=== PATIENT | female | born 1950 | race Caucasian/White ===

== ENCOUNTER 2023-01-04 14:06 | Inpatient (IN) ==
[2023-01-04] MEDS ORDERED: HYDROCODONE/ACETAMOPHEN 5/325MG TAB PO STA (14:58)
--- NOTE | 2023-01-04 14:58 | Emergency Department Note ---
History of Present Illness General Chief complaint: Fall Stated complaint: FALL, EYE PAIN Time Seen by Provider: 01/04/23 14:30 History of Present Illness Maximum Pain Intensity: 10 This is a 72-year-old female presents to the emergency department via private vehicle with complaints of "fall, right-sided head bruising, right hip pain". Patient has this past Thursday she fell. She has a small dog and notes that it was pulling her causing her to fall. She then landed on the right hip area. She notes pain to the right hip since that time. It is worse with weightbearing and movement. She also notes that she struck the right side of her head. She does take a baby aspirin daily. She notes a history of endovascular aneurysm surgery October 29. She also notes history of open heart surgery with heart valve replacement. She denies any headaches. No nausea or vomiting. She notes right hip pain however since the injury. Current pain 05/19. Home Medications Medication Instructions Recorded Confirmed Type aspirin 81 mg chewable tablet 81 mg PO QAM 11/11/21 01/04/23 History bupropion HCl 150 mg 24 hr tablet, 150 mg PO QAM 11/11/21 01/04/23 History extended release (Wellbutrin XL) coenzyme Q10 100 mg capsule 100 mg PO QAM 11/11/21 01/04/23 History (CoQ-10) fluoxetine 10 mg capsule 10 mg PO QAM 11/11/21 01/04/23 History cholecalciferol (vitamin D3) 25 25 mcg PO QAM 04/09/22 01/04/23 History mcg (1,000 unit) capsule (Vitamin D3) folic acid 400 mcg tablet 0.4 mg PO QAM 04/09/22 01/04/23 History lactobacillus combination no.4 3 3,000 mmu cells PO QAM 04/09/22 01/04/23 History billion cell capsule (Probiotic) psyllium 1 packet PO [id number] 04/09/22 01/04/23 History calcium carbonate 500 mg calcium 500 mg PO DAILY 01/04/23 01/04/23 History (1,250 mg) tablet fluoxetine 20 mg capsule 20 mg PO DAILY 01/04/23 01/04/23 History magnesium malate, chelate 125 mg PO QAM 01/04/23 01/04/23 History vitamin B12 1 mg-folic acid 0.8 mg 1 tab PO QAM 01/04/23 01/04/23 History tablet Allergies Allergy/AdvReac Type Severity Reaction Status Date / Time No Known Allergies Allergy Verified 01/04/23 17:42 Past Med/Surg History Medical History (Updated 01/05/23 @ 10:30 by Favian Mosley DO) Anxiety Arthritis Brain injury 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 Brown - NO stent placed - Follows Dr. Shaw Hx of cataract extraction LT. Hx of laser iridotomy right eye Hx of tonsillectomy S/P TAVR (transcatheter aortic valve replacement) 12/19/2021 - [facility] - Follows Dr. Shaw Status post coil embolization of cerebral aneurysm [place] - October 2021 - Right MCA bifurcation - follows Dr. 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 Feels Safe at Home: Yes Assistive Devices: Cane, Glasses, Hearing Aid - Bilateral and Other Review of Systems A total of 10 systems reviewed and were otherwise negative Physical Exam Vital Signs Vital Signs - 24 hr 01/04/23 14:07 01/04/23 18:04 Temperature 36.5 C Temperature Source Temporal Artery Scan Pulse Rate 72 Pulse Rate [Right Radial] 75 Respiratory Rate 16 18 Respiratory Effort / Characteristics Non-Labored Respiratory Depth Normal Normal Blood Pressure 144/63 H Blood Pressure [Left Arm] 160/88 H Blood Pressure Mean 90 Blood Pressure Mean [Left Arm] 112 Blood Pressure Position [Left Arm] Lying Pulse Oximetry 99 97 Oxygen Delivery Method Room Air Room Air Sepsis Recent Fever Within 48 Hours No Sepsis New/Unexplained Change in Mental Status No Sepsis Action Taken by Nursing No Action Required VITAL SIGNS - Vital signs and nursing notes were reviewed. Stable and afebrile. GENERAL -72-year-old female appearing her stated age who is in no acute dist ress. Communicates well with provider and answers questions appropriately. SKIN -right sided scalp and forehead contusion noted. There is dependent bruising to the right lateral periorbital region. No meningeal or petechial rash. HEAD - NC/AT. EYES - Sclera anicteric. EARS - No deformities of external structures noted on gross examination bilaterally. No hemotympanum. NOSE - Midline and without cyanosis. No epistaxis or purulent drainage noted. Septum midline without deviation or septal hematoma noted. MOUTH/OROPHARYNX - Without perioral cyanosis. NECK - Neck with FROM. No C-spine tenderness. LUNGS -clear to auscultation CARDIAC - RRR EXTREMITIES - No clubbing or peripheral cyanosis. Right greater trochanter point tenderness to palpation. Pain with external hip movement noted. R dorsalis pedis pulse within normal limits. NEUROLOGIC - Cranial nerves II through XII grossly intact. She is neurovascularly intact to the right lower extremity without deficit. PSYCH - A&O, and cooperates fully with examiner. Pt is very pleasant and interacts well with examiner. Course Administered Medications Acetaminophen (Acetaminophen 500 Mg Tab) 1,000 mg PO TID [facility] Stop: 02/03/23 21:45 Last Admin: 01/05/23 09:13 Dose: 1,000 mg Documented By: Admin: 01/04/23 22:18 Dose: 1,000 mg Documented By: VERONICA Bupropion HCl (Bupropion Xl 150 Mg Tabcr) 150 mg PO QAM [facility] Stop: 02/04/23 08:59 Last Admin: 01/05/23 09:13 Dose: 150 mg Documented By: FORREST Calcium Carbonate (Calcium Carbonate 500 Mg Chewable Tab) 500 mg PO DAILY [facility] Stop: 02/04/23 08:59 Last Admin: 01/05/23 09:38 Dose: Not Given Documented By: FORREST Fluoxetine HCl (Fluoxetine Hcl 10 Mg Cap) 10 mg PO QAM [facility] Stop: 02/04/23 08:59 Last Admin: 01/05/23 09:14 Dose: 10 mg Documented By: FORREST Fluoxetine HCl (Fluoxetine Hcl 20 Mg Cap) 20 mg PO DAILY [facility] Stop: 02/04/23 08:59 Last Admin: 01/05/23 09:14 Dose: 20 mg Documented By: FORREST Lactobacillus Acidophilus (Advanced Probiotic 1250 Mg Capsule) 2 cap PO DAILY [facility] Stop: 02/04/23 08:59 Last Admin: 01/05/23 09:38 Dose: Not Given Documented By: FORREST Oxycodone HCl (Oxycodone Hcl Ir 5 Mg Tab (Immediate Release)) 5 mg PO Q6H PRN PRN Reason: Pain Stop: 01/18/23 22:37 Last Admin: 01/05/23 06:20 Dose: 5 mg Documented By: Admin: 01/04/23 23:38 Dose: 5 mg Documented By: HUMBERTO Psyllium Hydrophilic Mucilloid (Psyllium Or Guar Gum Fiber Powder Packet) 1 pkt PO MoWeFr [facility] Stop: 02/04/23 08:59 Last Admin: 01/05/23 09:39 Dose: Not Given Documented By: FORREST Senna/Docusate Sodium (Docusate Sodium/Senna 50/8.6mg Tab) 2 tab PO HS [facility] Stop: 02/03/23 21:45 Last Admin: 01/04/23 22:18 Dose: 2 tab Documented By: VERONICA Discontinued Medications Hydrocodone Bitart/Acetaminophen (Hydrocodone/Acetamophen 5/325mg Tab) 1 tab PO NOW STA Stop: 01/04/23 14:59 Last Admin: 01/04/23 15:03 Dose: 1 tab Documented By: JACK Enoxaparin Sodium (Enoxaparin Inj 40 Mg/0.4 Ml Syr) 40 mg SQ ONE ONE Stop: 01/04/23 21:47 Last Admin: 01/04/23 22:23 Dose: 40 mg Documented By: VERONICA Medical Decision Making Laboratory Data 01/04/23 18:00 01/04/23 18:00 Lab Results 01/04/23 01/04/23 01/04/23 Range/Units 18:00 18:00 18:00 WBC 6.28 (4.8-10.8) K/ul RBC 3.72 L (4.20-5.40) M/uL Hgb 11.5 L (12.0-16.0) g/dl Hct 34.9 L (37.0-47.0) % MCV 93.8 (80.0-100.0) fL MCH 30.9 (25.0-34.0) pg MCHC 33.0 (32.0-36.0) g/dL RDW Std Deviation 48.7 H (36.4-46.3) fL RDW Coeff of Loren 14.2 (11.5-14.5) % Plt Count 214 (130-400) K/uL MPV 10.6 (9.4-12.4) fL Immature Gran % (Auto) 0.2 % Neut % (Auto) 62.4 % Lymph % (Auto) 19.7 % [place] % (Auto) 8.8 % Eos % (Auto) 8.3 % Baso % (Auto) 0.6 % Neut # (Auto) 3.92 (1.40-6.50) K/uL Lymph # (Auto) 1.24 (1.2-3.4) K/uL [place] # (Auto) 0.55 (0.11-0.59) K/uL Eos # (Auto) 0.52 H (0-0.50) K/uL Baso # (Auto) 0.04 (0-0.2) K/uL Immature Gran # (Auto) 0.01 (0.01-0.20) K/uL PT 10.8 (9.0-12.0) Seconds INR 1.0 (0.9-1.1) APTT 30.0 (21.0-31.0) Seconds PTT Ratio 1.1 Sodium 138 (136-145) mmol/L Potassium 4.1 (3.5-5.1) mmol/L Chloride 102 (98-107) mmol/L Carbon Dioxide 27 (21-32) mmol/L Anion Gap 9 (3-11) BUN 15 (6-23) mg/dl Creatinine 0.70 (0.6-1.2) mg/dl Est Cr Clr Drug Dosing 65.8 ml/min Est GFR ( Amer) 99.6 ml/min Est GFR (Non-Af Amer) 86.0 ml/min BUN/Creatinine Ratio 21.4 H (10-20) Glucose 85 (70-99(Fasting)) mg/dl Calcium 9.5 (8.6-10.3) mg/dl Total Bilirubin 0.8 (0.2-1.0) mg/dl AST 32 (13-39) U/L ALT 17 (7-52) U/L Alkaline Phosphatase 62 (34-104) U/L Total Protein 7.9 (6.0-8.3) gm/dl Albumin 4.4 (3.4-5.0) gm/dl Globulin 3.5 (2.5-4.0) gm/dl Albumin/Globulin Ratio 1.3 (0.9-2) SARS-CoV-2, RNA, NAAT (NEGATIVE) Blood Type Antibody Screen 01/04/23 01/04/23 Range/Units 18:05 18:24 WBC (4.8-10.8) K/ul RBC (4.20-5.40) M/uL Hgb (12.0-16.0) g/dl Hct (37.0-47.0) % MCV (80.0-100.0) fL MCH (25.0-34.0) pg MCHC (32.0-36.0) g/dL RDW Std Deviation (36.4-46.3) fL RDW Coeff of Loren (11.5-14.5) % Plt Count (130-400) K/uL MPV (9.4-12.4) fL Immature Gran % (Auto) % Neut % (Auto) % Lymph % (Auto) % [place] % (Auto) % Eos % (Auto) % Baso % (Auto) % Neut # (Auto) (1.40-6.50) K/uL Lymph # (Auto) (1.2-3.4) K/uL [place] # (Auto) (0.11-0.59) K/uL Eos # (Auto) (0-0.50) K/uL Baso # (Auto) (0-0.2) K/uL Immature Gran # (Auto) (0.01-0.20) K/uL PT (9.0-12.0) Seconds INR (0.9-1.1) APTT (21.0-31.0) Seconds PTT Ratio Sodium (136-145) mmol/L Potassium (3.5-5.1) mmol/L Chloride (98-107) mmol/L Carbon Dioxide (21-32) mmol/L Anion Gap (3-11) BUN (6-23) mg/dl Creatinine (0.6-1.2) mg/dl Est Cr Clr Drug Dosing ml/min Est GFR ( Amer) ml/min Est GFR (Non-Af Amer) ml/min BUN/Creatinine Ratio (10-20) Glucose (70-99(Fasting)) mg/dl Calcium (8.6-10.3) mg/dl Total Bilirubin (0.2-1.0) mg/dl AST (13-39) U/L ALT (7-52) U/L Alkaline Phosphatase (34-104) U/L Total Protein (6.0-8.3) gm/dl Albumin (3.4-5.0) gm/dl Globulin (2.5-4.0) gm/dl Albumin/Globulin Ratio (0.9-2) SARS-CoV-2, RNA, NAAT NEGATIVE (NEGATIVE) Blood Type A Positive Antibody Screen NEGATIVE Imaging Data Radiologist's Impression: Head CT 01/04/23 14:27 CT head/brain wo con CLINICAL HISTORY: Right eye Bruising, on blood thinners Technique: Contiguous axial CT images of the head were acquired from the base of the skull to the vertex without intravenous contrast administration. Images were viewed in brain, subdural and bone windows. Automated dose lowering techniques and/or adjustment according to patient size were utilized for this exam. Comparison: Comparison is made to CT head 04/19/2022 Findings: Areas of decreased attenuation are present in the periventricular and subcortical white matter bilaterally consistent with small vessel ischemic disease. Generalized cerebral atrophy with commensurate enlargement of the ventricles, sulci, and cisterns is also present. There is no acute intracranial hemorrhage or evidence of acute territorial infarction. No shift of the midline structures, mass effect, or extra-axial abnormalities are shown. Atherosclerotic calcifications are present in the intracranial segments of the internal carotid arteries. 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 Imaged portions of the paranasal sinuses and mastoid air cells are clear. The orbits appear normal. There are no acute fractures of the calvaria. Scalp swelling is seen in the right temporal soft tissues. Impression: No acute intracranial hemorrhage or skull fractures. Scalp swelling is seen in the right temporal soft tissues. ACT 112: Negative or not required by law. Electronically signed by: Ottoniel Carreon M.D. 01/04/2023 4:14 PM Femur X-Ray 01/04/23 14:42 XR femur RT 2V routine CLINICAL HISTORY: Fall, R hip pain TECHNIQUE: 2 radiographic views of the right femur were obtained. Comparison: Comparison is made to pelvis radiograph 12/15/2022 FINDINGS: There appears to be linear lucency at the base of the femoral head suggestive of a subcapital fracture. Degenerative changes are seen in the hip and knee joints. Soft tissue swelling is seen. IMPRESSION: Possible subcapital fracture of the right femur. If clinical concern remains, dedicated hip radiograph can be performed. ACT 112: Negative or not required by law. Electronically signed by: Ottoniel Carreon M.D. 01/04/2023 4:13 PM Pelvis X-Ray 01/04/23 14:42 XR pelvis 1-2V routine CLINICAL HISTORY: Fall, R hip pain TECHNIQUE: A single frontal view of the pelvis was obtained. Comparison: None available at the time of this dictation. FINDINGS: No pelvic fracture is seen. There is foreshortening of the right femoral neck which is likely positional. Degenerative changes are seen in the hip joints and lumbar spine. No soft tissue abnormality is seen. IMPRESSION: Degenerative changes are seen. There is foreshortening of the right femoral neck, if there is clinical concern for right rib fracture, dedicated radiographs can be performed. ACT 112: Negative or not required by law. Electronically signed by: Ottoniel Carreon M.D. 01/04/2023 4:05 PM Hip X-Ray 01/04/23 17:27 XR hip RT min 2V CLINICAL HISTORY: frog leg, ap pevis, frog leg lateral TECHNIQUE: 2 views of the right hip were obtained. Comparison: Comparison is made to pelvis radiograph 01/04/2023 FINDINGS: Linear lucency at the base of the femoral head is compatible with subcapital femoral neck fracture which appears mildly impacted. Degenerative changes are seen in the hip joint. Soft tissue swelling is seen. IMPRESSION: Findings are compatible with slightly impacted subcapital femoral neck fracture. ACT 112: Negative or not required by law. Electronically signed by: Ottoniel Carreon M.D. 01/04/2023 6:13 PM [facility] Narrative Patient was seen and evaluated as above in room D01. Review was performed of [facility] nursing notes and vital signs. After obtaining a thorough history and physical examination the above work up was performed. Patient presents to us today for evaluation of injury status post fall. She struck the right side of her head and injured the right hip this past Thursday. She has been ambulatory but notes discomfort to the right hip. No headaches. No nausea or vomiting. She takes baby aspirin daily. Options of care were discussed with the patient. She was medicated with hydr ocodone/acetaminophen tablet for pain. CT of the head was read as negative for acute intracranial bleed. X-ray of the pelvis and femur were obtained noting areas of discomfort. There is comment of foreshortening of the right femoral neck noting concern for right hip fracture. Possible subcapital fracture of the right femur is noted. Dedicated hip radiographs can be performed as per radiologist recommendation. I discussed this with the on-call orthopedist for the group of which the patient is previously followed, Dr. Christian. Recommendation was to proceed with dedicated hip views. The radiologist tech then did call me and clarified the views as they do note much of the views have already been obtained through femur and pelvis. It was noted that they did not obtain a frog-leg lateral. I then placed dedicated orders for AP pelvis, AP hip and frog-leg lateral for the right hip. I also notified the radiologist of the new views. It was then read as findings compatible with slightly impacted subcapital femoral neck fracture which is consistent with her exam. The [place] tablet provided adequate pain relief. Case discussed with the hospitalist service. Please refer to further documentation regarding her stay. Patient did have adequate pain relief with the hydrocodone/acetaminophen tablet. Labs reveal no leukocytosis. Minor anemia noted with hemoglobin of 11.5. GCS: 15 In the evaluation and treatment of this patient, the following differential diagnoses were considered: Hip Fracture, Hip Dislocation, Greater Trochanteric Bursitis, Musculoskeletal Pain, Lumbar Radiculopathy. Impression & Plan Closed fracture of right hip, Fall, Contusion of head Discharge Plan Visit Data Chief Complaint: Fall Stated Complaint: FALL, EYE PAIN ED Provider: Arash Rodriges ED Midlevel Provider: Hilario Salinas Discharge Problem: Closed fracture of right hip, Fall, Contusion of head Patient Disposition: Admitted As Inpatient Condition: Good Discharge Instructions Interventions: ED Discharge Assessment Last Done: 01/04/23 23:07 Contusion of head Qualifiers: Laterality: right
--- NOTE | 2023-01-04 16:07 | XRay Report ---
XR pelvis 1-2V routine CLINICAL HISTORY: Fall, R hip pain TECHNIQUE: A single frontal view of the pelvis was obtained. Comparison: None available at the time of this dictation. FINDINGS: No pelvic fracture is seen. There is foreshortening of the right femoral neck which is likely positio nal. Degenerative changes are seen in the hip joints and lumbar spine. No soft tissue abnormality is seen. IMPRESSION: Degenerative changes are seen. There is foreshortening of the right femoral neck, if there is clinica l concern for right rib fracture, dedicated radiographs can be performed. ACT 112: Negative or not required by law. Electronically signed by: Ottoniel Carreon M.D. 01/04/2023 4:05 PM
--- NOTE | 2023-01-04 16:14 | XRay Report ---
XR femur RT 2V routine CLINICAL HISTORY: Fall, R hip pain TECHNIQUE: 2 radiographic views of the right femur were obtained. Comparison: Comparison is made to pelvis radiograph 12/15/2022 FINDINGS: There appears to be linear lucency at the base of the femoral head suggestive of a subcapital fractur e. Degenerative changes are seen in the hip and knee joints. Soft tissue swelling is seen. IMPRESSION: Possible subcapital fracture of the right femur. If clinical concern remains, dedicated hip radiograp h can be performed. ACT 112: Negative or not required by law. Electronically signed by: Ottoniel Carreon M.D. 01/04/2023 4:13 PM
--- NOTE | 2023-01-04 16:15 | CT Scan Report ---
CT head/brain wo con CLINICAL HISTORY: Right eye Bruising, on blood thinners Technique: Contiguous axial CT images of the head were acquired from the base of the skull to the eliza sayda without intravenous contrast administration. Images were viewed in brain, subdural and [facility]. Automated dose lowering techniques and/or adjustment according to patient size were utilized for this exam. Comparison: Comparison is made to CT head 04/19/2022 Findings: Areas of decreased attenuation are present in the periventricular and subcortical white matter bilate rally consistent with small vessel ischemic disease. Generalized cerebral atrophy with commensurate e nlargement of the ventricles, sulci, and cisterns is also present. There is no acute intracranial hem orrhage or evidence of acute territorial infarction. No shift of the midline structures, mass effect, or extra-axial abnormalities are shown. Atherosclerotic calcifications are present in the intracran ial segments of the internal carotid arteries. Lacunar infarct in the left basal ganglia is unchanged . Imaged portions of the paranasal sinuses and mastoid air cells are clear. The orbits appear normal. There are no acute fractures of the calvaria. Scalp swelling is seen in the right temporal soft tiss ues. Impression: No acute intracranial hemorrhage or skull fractures. Scalp swelling is seen in the right temporal sof t tissues. ACT 112: Negative or not required by law. Electronically signed by: Ottoniel Carreon M.D. 01/04/2023 4:14 PM
--- NOTE | 2023-01-04 18:15 | XRay Report ---
XR hip RT min 2V CLINICAL HISTORY: frog leg, ap pevis, frog leg lateral TECHNIQUE: 2 views of the right hip were obtained. Comparison: Comparison is made to pelvis radiograph 01/04/2023 FINDINGS: Linear lucency at the base of the femoral head is compatible with subcapital femoral neck fracture wh ich appears mildly impacted. Degenerative changes are seen in the hip joint. Soft tissue swelling is seen. IMPRESSION: Findings are compatible with slightly impacted subcapital femoral neck fracture. ACT 112: Negative or not required by law. Electronically signed by: Ottoniel Carreon M.D. 01/04/2023 6:13 PM
--- NOTE | 2023-01-04 18:29 | History & Physical Report ---
Date of Service January 04, 2023 Assessment & Plan (1) Closed fracture of right hip: Plan: Pain management with acetaminophen ELLIOT + morphine 1-2mg PRN CXR - no acute abnormalities, EKG NSR with no acute ischemic changes Patient has a murmurs from prior TAVR Patient is medically optimized for surgery at this time. NPO after midnight Consult orthopedics (2) Contusion of head: Plan: CT head negative for intracranial abnormality Monitor (3) Fall: Plan: No further workup required - due to her dog suddenly releasing tension on the leash (4) S/P TAVR (transcatheter aortic valve replacement): Plan: Mild coronary artery disease noted on pre-op catheterization. Murmurs on exam. No history of heart failure. Restart aspirin post operatively (5) Depression: Plan: Continue fluoxetine Plan VTE Prophyalxis - one dose of Lovenox now then defer to orthopedics post operatively Diet - regular, NPO @ midnight Disposition - admit to med/surg Admission and Anticipated Discharge Date Admission Date: January 04, 2023 History of Present Illness Chief Complaint: Right hip pain Primary Care Provider: Jenni Peters MD Anastasiya Chapin is a 72 year old female who presents to the ER with right hip pain after a fall on Thursday. She was holding her dog that was jerking away from her and suddenly let up on the tension that she fell onto her right hip and then hit her head. She did not seek medical attention and has not moved around the house much since. Severity hip pain 0/10 without movement, pain only while walking on it. She tried to do more walking yesterday which increased the pain then and today therefore she decided to come to the ER. No loss of consciousness with the fall. She is not on anticoagulation but takes an aspiring for coronary artery disease (picked up incidentally on pre-op catheterization for TAVR). Other history includes an incidental brain aneurysm which was operated on 7-8 years ago. At 10 months old she had a traumatic injury from falling from a high chair causing right sided weakness which she still has some residual effects especially in her right ankle and toes from this. Most recently she had a TAVR procedure for severe aortic stenosis in December last year - no problems since then and no prior diagnosis of heart failure. She has never had a heart attack or stroke. No chest pain or shortness of breath on exertion although this is limited by her knee arthritis. Allergies Allergy/AdvReac Type Severity Reaction Status Date / Time No Known Allergies Allergy Verified 01/04/23 17:42 Home Medications Medication Instructions Recorded Confirmed Type aspirin 81 mg chewable tablet 81 mg PO QAM 11/11/21 01/04/23 History bupropion HCl 150 mg 24 hr tablet, 150 mg PO QAM 11/11/21 01/04/23 History extended release (Wellbutrin XL) coenzyme Q10 100 mg capsule 100 mg PO QAM 11/11/21 01/04/23 History (CoQ-10) fluoxetine 10 mg capsule 10 mg PO QAM 11/11/21 01/04/23 History cholecalciferol (vitamin D3) 25 25 mcg PO QAM 04/09/22 01/04/23 History mcg (1,000 unit) capsule (Vitamin D3) folic acid 400 mcg tablet 0.4 mg PO QAM 04/09/22 01/04/23 History lactobacillus combination no.4 3 3,000 mmu cells PO QAM 04/09/22 01/04/23 History billion cell capsule (Probiotic) psyllium 1 packet PO 3XWK 04/09/22 01/04/23 History calcium carbonate 500 mg calcium 500 mg PO DAILY 01/04/23 01/04/23 History (1,250 mg) tablet fluoxetine 20 mg capsule 20 mg PO DAILY 01/04/23 01/04/23 History magnesium malate, chelate 125 mg PO QAM 01/04/23 01/04/23 History vitamin B12 1 mg-folic acid 0.8 mg 1 tab PO QAM 01/04/23 01/04/23 History tablet Past Med/Surg History Medical History Anxiety Arthritis Brain injury Childhood trauma (fall from highchair) 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 Brown - NO stent placed - Follows Dr. Shaw Hx of cataract extraction LT. Hx of laser iridotomy right eye Hx of tonsillectomy S/P TAVR (transcatheter aortic valve replacement) 12/19/2021 - [place] - Follows Dr. Shaw Status post coil embolization of cerebral aneurysm [facility] - October 2021 - Right MCA bifurcation - follows Dr. 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 Feels Safe at Home: Yes Assistive Devices: Cane, Glasses, Hearing Aid - Bilateral and Other Review of Systems Review of Systems: All systems reviewed & are unremarkable except as noted in HPI & below Physical Exam Constitutional: WD/WN, vitals as above Eyes: PERRL, conjunctivae normal, anicteric sclerae ENMT: external ear and nose normal, oropharynx normal Neck: trachea midline, no thyromegaly Respiratory: normal respiratory effort, lungs clear to auscultation Cardiovascular: Rate/Rhythm: regular rate and regular rhythm Heart Sounds: + murmur (systolic, loudest in LUSB 5/6) Gastrointestinal (Abdomen): normal bowel sounds, soft, nontender, no hepatosplenomegaly Musculoskeletal: reasonable range of movement of right hip given fracture, pain on hip abduction Chronic reduce dorsiflexion/plantarflexion in right ankle follow traumatic injury in her childhood - no acute change, sensation intact Skin: no rashes, warm and dry Neurologic: moves all extremities and awake; not confused Psychiatric: A+Ox3, euthymic affect Results & Data Results & Data Vital Signs (Past 12 Hours) Vital Signs Temp Pulse Pulse Resp BP BP Pulse Ox 01/04/23 18:04 75 18 160/88 H 97 01/04/23 14:07 36.5 C 72 16 144/63 H 99 O2 Del Method 01/04/23 18:04 Room Air 01/04/23 14:07 Room Air Laboratory Results Abnormal lab results 01/04/23 01/04/23 01/04/23 Range/Units 18:00 18:00 19:50 RBC 3.72 L (4.20-5.40) M/uL Hgb 11.5 L (12.0-16.0) g/dl Hct 34.9 L (37.0-47.0) % RDW Std Deviation 48.7 H (36.4-46.3) fL Eos # (Auto) 0.52 H (0-0.50) K/uL BUN/Creatinine Ratio 21.4 H (10-20) Urine Appearance Cloudy A (Clear) Urine pH 8.5 H (4.5-7.5) Urine Ketones 1+ H (Negative) Urine Blood Trace H (Negative) Urine RBC (Auto) 5-10 H (0-4) /hpf U Epithel Cells (Auto) 10-20 H (0-5) /lpf Diagnostic Findings CT head/brain wo con CLINICAL HISTORY: Right eye Bruising, on blood thinners Technique: Contiguous axial CT images of the head were acquired from the base of the skull to the vertex without intravenous contrast administration. Images were viewed in brain, subdural and bone windows. Automated dose lowering techniques and/or adjustment according to patient size were utilized for this exam. Comparison: Comparison is made to CT head 04/19/2022 Findings: Areas of decreased attenuation are present in the periventricular and subcortical white matter bilaterally consistent with small vessel ischemic disease. Generalized cerebral atrophy with commensurate enlargement of the ventricles, sulci, and cisterns is also present. There is no acute intracranial hemorrhage or evidence of acute territorial infarction. No shift of the midline structures, mass effect, or extra-axial abnormalities are shown. Atherosclerotic calcifications are present in the intracranial segments of the internal carotid arteries. 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 Imaged portions of the paranasal sinuses and mastoid air cells are clear. The orbits appear normal. There are no acute fractures of the calvaria. Scalp swelling is seen in the right temporal soft tissues. Impression: No acute intracranial hemorrhage or skull fractures. Scalp swelling is seen in the right temporal soft tissues. XR femur RT 2V routine CLINICAL HISTORY: Fall, R hip pain TECHNIQUE: 2 radiographic views of the right femur were obtained. Comparison: Comparison is made to pelvis radiograph 12/15/2022 FINDINGS: There appears to be linear lucency at the base of the femoral head suggestive of a subcapital fracture. Degenerative changes are seen in the hip and knee joints. Soft tissue swelling is seen. IMPRESSION: Possible subcapital fracture of the right femur. If clinical concern remains, dedicated hip radiograph can be performed. XR pelvis 1-2V routine CLINICAL HISTORY: Fall, R hip pain TECHNIQUE: A single frontal view of the pelvis was obtained. Comparison: None available at the time of this dictation. FINDINGS: No pelvic fracture is seen. There is foreshortening of the right femoral neck which is likely positional. Degenerative changes are seen in the hip joints and lumbar spine. No soft tissue abnormality is seen. IMPRESSION: Degenerative changes are seen. There is foreshortening of the right femoral neck, if there is clinical concern for right rib fracture, dedicated radiographs can be performed. XR hip RT min 2V CLINICAL HISTORY: frog leg, ap pevis, frog leg lateral TECHNIQUE: 2 views of the right hip were obtained. Comparison: Comparison is made to pelvis radiograph 01/04/2023 FINDINGS: Linear lucency at the base of the femoral head is compatible with subcapital femoral neck fracture which appears mildly impacted. Degenerative changes are seen in the hip joint. Soft tissue swelling is seen. IMPRESSION: Findings are compatible with slightly impacted subcapital femoral neck fracture. Medications Administered ER Medications Given: [place] 5/325 1 tab PO ECG Rate (beats per minute): 73 Rhythm: normal sinus Findings: no acute ischemic change Comparison ECG Date: no prior available Code Status & VTE Plan Code Status Full PG Care Time/CCT Total # of Minutes Spent Total Time Spent with Patient: Total time spent is greater than 50% in coordination of care (as documented) at patient's floor/unit and/or counseling patient: Coding Level of Care Code 67954 INT INP/OBS CARE 2/55MIN Diagnoses Closed fracture of right hip S72.001A Contusion of head S00.93XA Laterality: right Fall W19.XXXA S/P TAVR (transcatheter aortic valve replacement) Z95.2 Depression F32.A (2) Contusion of head Laterality: right
[2023-01-04 18:30] LABS: Basophils # (auto) 0.04 K/uL (0-0.2); Basophils % (auto) 0.6 %; Eosinophils # (auto) 0.52 K/uL (0-0.50); Eosinophils % (auto) 8.3 %; Hematocrit (blood only) 34.9 % (37.0-47.0); Hemoglobin 11.5 g/dl (12.0-16.0); Immature Granulocytes # (auto) 0.01 K/uL (0.01-0.20); Immature Granulocytes % (auto) 0.2 %; Lymphocytes # (auto) 1.24 K/uL (1.2-3.4); Lymphocytes % (auto) 19.7 %; Mean Corpuscular Hemoglobin 30.9 pg (25.0-34.0); Mean Corpuscular Volume 93.8 fL (80.0-100.0); Mean Platelet Volume 10.6 fL (9.4-12.4); Monocytes # (auto) 0.55 K/uL (0.11-0.59); Monocytes % (auto) 8.8 %; Neutrophils # (auto) 3.92 K/uL (1.40-6.50); Neutrophils % (auto) 62.4 %; Platelet Count 214 K/uL (130-400); RDW Coefficient of Variation 14.2 % (11.5-14.5); RDW Standard Deviation 48.7 fL (36.4-46.3); Red Blood Count 3.72 M/uL (4.20-5.40); White Blood Count 6.28 K/ul (4.8-10.8)
[2023-01-04 18:41] LABS: Albumin Globulin Ratio 1.3 (0.9-2); Albumin Level 4.4 gm/dl (3.4-5.0); BUN Creatinine Ratio 21.4 (10-20); Bilirubin,Total 0.8 mg/dl (0.2-1.0); Calcium 9.5 mg/dl (8.6-10.3); Creatinine Clr Calc Pharmacy 65.8 ml/min; Est GFR (African American) 99.6 ml/min; Globulin 3.5 gm/dl (2.5-4.0); Potassium 4.1 mmol/L (3.5-5.1); Total Protein 7.9 gm/dl (6.0-8.3)
[2023-01-04 19:02] LABS: Partial Thromboplastin Ratio 1.1; Prothrombin Time 10.8 Seconds (9.0-12.0)
--- NOTE | 2023-01-04 19:50 | XRay Report ---
XR chest 1V portable CLINICAL HISTORY: pre-op TECHNIQUE: Single frontal radiograph of the chest was obtained. Comparison: None available at the time of this dictation. FINDINGS: No lines and tubes are seen. Cardiomegaly is noted. Prosthetic valve is noted. The lungs are clear. N o evidence of pleural effusion or pneumothorax. IMPRESSION: No acute chest disease. ACT 112: Negative or not required by law. Electronically signed by: Ottoniel Carreon M.D. 01/04/2023 7:49 PM
[2023-01-04 20:06] LABS: Appearance Urine Cloudy (Clear); Bacteria Urine Automated Negative (Negative); Bilirubin Urine Negative (Negative); Blood Urine Trace (Negative); Cast Urine Automated 0 /lpf (0-5); Color Urine Yellow; Glucose Urine UA Negative (Negative); Ketones Urine 1+ (Negative); Leukocyte Esterase Urine Negative (Negative); Nitrite Urine Negative (Negative); Protein Urine Negative (Negative); Specific Gravity Urine 1.012 (1.000-1.030); Urobilinogen Urine Negative (Negative); pH Urine 8.5 (4.5-7.5)
[2023-01-04] MEDS ORDERED: bisacodyL 10 MG SUPP PR PRN (21:46)
[2023-01-04] MEDS ORDERED: ENOXAPARIN INJ 40 MG/0.4 ML SYR SQ ONE (21:46)
[2023-01-04] MEDS ORDERED: MAGNESIUM HYDROXIDE SUSP 30 ML UDC PO PRN (21:46)
[2023-01-04] MEDS ORDERED: MoRPHine SULFATE 2 MG/ML CARP IV PRN (21:46)
[2023-01-04] MEDS ORDERED: MoRPHine SULFATE 4 MG/ML 1 ML CARP\\VIAL IV PRN (21:46)
[2023-01-04] MEDS ORDERED: NALOXONE HCL 0.4 MG/1 ML VIAL/CARP IV PRN (21:46)
--- NOTE | 2023-01-04 22:05 | Orthopedic Consultation ---
Date of Service January 04, 2023 Assessment & Plan (1) Fracture of femoral neck, right, closed: 72-year-old community ambulator without assist device sustained fall 4 days ago resulting in valgusimpacted, subcapital femoral neck fracture. Fracture is indicated for percutaneous screw fixation. I showed the patient and her the x-rays. I explained the diagnosis and treatment option surgical stabilization is the standard of care. I think the fracture pattern is amenable to fixation and avoidance of a partial or total hip arthroplasty. I discussed the risks of surgery includes, but not limited to, infection, nerve or vessel injury, arthrofibrosis of the hip, nonunion, malunion need for repeat or revision surgery, progressive degenerative changes with or without surgical intervention, implant complications and failure, need for eventual total hip replacement, pain syndromes, blood clots, and complications related to anesthesia. Her and her asked appropriate questions, demonstrated a good understanding of her diagnosis and treatment options, and at this time wanted proceed with surgery. She is being admitted to the medical team for preoperative optimization and clearance. We expect she will be able to go to surgery as early as tomorrow. N.p.o. at midnight. She should be bedrest. She will be on-call tomorrow to the OR midmorning for right femoral neck open or closed reduction and internal fixation. History of Present Illness Reason for Consultation: Right femoral neck fracture Requesting Physician: . 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 Reports she fell directly onto the lateral side of her right hip and also hit her right face. She treated at home herself but was having difficulty weightbearing. She said she is comfortable at rest but has significant with attempts at walking. She was using a TV tray as a walker at home. She came in today to get checked out due to lack of improvement. Denies any previous significant hip pain. She does have a history of bilateral knee arthritis and is thinking about total knee replacement. Pain is localized to the right hip. She said she is much more comfortable after taking oral pain medicines in the ER. Allergies Allergy/AdvReac Type Severity Reaction Status Date / Time No Known Allergies Allergy Verified 01/04/23 17:42 Home Medications Medication Instructions Recorded Confirmed Type aspirin 81 mg chewable tablet 81 mg PO QAM 11/11/21 01/04/23 History bupropion HCl 150 mg 24 hr tablet, 150 mg PO QAM 11/11/21 01/04/23 History extended release (Wellbutrin XL) coenzyme Q10 100 mg capsule 100 mg PO QAM 11/11/21 01/04/23 History (CoQ-10) fluoxetine 10 mg capsule 10 mg PO QAM 11/11/21 01/04/23 History cholecalciferol (vitamin D3) 25 25 mcg PO QAM 04/09/22 01/04/23 History mcg (1,000 unit) capsule (Vitamin D3) folic acid 400 mcg tablet 0.4 mg PO QAM 04/09/22 01/04/23 History lactobacillus combination no.4 3 3,000 mmu cells PO QAM 04/09/22 01/04/23 History billion cell capsule (Probiotic) psyllium 1 packet PO 3XWK 04/09/22 01/04/23 History calcium carbonate 500 mg calcium 500 mg PO DAILY 01/04/23 01/04/23 History (1,250 mg) tablet fluoxetine 20 mg capsule 20 mg PO DAILY 01/04/23 01/04/23 History magnesium malate, chelate 125 mg PO QAM 01/04/23 01/04/23 History vitamin B12 1 mg-folic acid 0.8 mg 1 tab PO QAM 01/04/23 01/04/23 History tablet Past Med/Surg History Medical History Anxiety Arthritis Brain injury Childhood trauma (fall from highchair) resulting in longstanding right-sided weakness CAD (coronary artery disease) LAD 70% and Circumflex 60/70% stenosis Cataract Depression Intracranial aneurysm x2 Surgical History History of colonoscopy Hx of arthroscopy of right knee Hx of cardiac catheterization 11/11/21 - [facility] - Dr. Brown - NO stent placed - Follows Dr. Shaw Hx of cataract extraction LT. Hx of laser iridotomy right eye Hx of tonsillectomy S/P TAVR (transcatheter aortic valve replacement) 12/19/2021 - [facility] - Follows Dr. Shaw Status post coil embolization of cerebral aneurysm [place] - October 2021 - Right MCA bifurcation - follows Dr. 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 Physical Exam RLE: Diffusely tender around the right hip and trochanteric area. She is able to perform straight leg raise with some mild pain. Mildly irritable with logroll. Distally neurovascular intact. Constitutional WD/WN, vitals as above Respiratory normal respiratory effort; no respiratory distress Cardiovascular Extremities: normal capillary refill; no edema Chest (Breasts) Chest: normal inspection of chest Skin no rashes, warm and dry Psychiatric A+Ox3, euthymic affect Results & Data Results & Data Laboratory Results H & H 01/04/23 Range/Units 18:00 Hgb 11.5 L (12.0-16.0) g/dl Hct 34.9 L (37.0-47.0) % Coagulation 01/04/23 Range/Units 18:00 INR 1.0 (0.9-1.1) Diagnostic Findings Radiographs include AP pelvis, AP of the right hip, lateral view of the right hip as a femur series and frog-leg lateral of the right hip. These radiographs demonstrate a valgus impacted, subcapital femoral neck fracture. PG Care Time/CCT Total # of Minutes Spent Total Time Spent with Patient: Total time spent is greater than 50% in coordination of care (as documented) at patient's floor/unit and/or counseling patient: Coding Level of Care Code 21868 IN/OBS CONSULT LVL 4,60M (57 - DECISION FOR SURGERY) Diagnoses Fracture of femoral neck, right, closed S72.001A Encounter type: initial encounter (1) Fracture of femoral neck, right, closed Encounter type: initial encounter Qualified Code(s): S72.001A - Fracture of unspecified part of neck of right femur, initial encounter for closed fracture
[2023-01-04] MEDS: DOCUSATE SODIUM/SENNA 50/8.6MG TAB PO SCH (22:18)
[2023-01-04] MEDS: ACETAMINOPHEN 500 MG TAB PO SCH (22:18)
[2023-01-04] MEDS: oxyCODONE HCL IR 5 MG TAB (IMMEDIATE RELEASE) PO PRN (23:38)
[2023-01-05] MEDS: oxyCODONE HCL IR 5 MG TAB (IMMEDIATE RELEASE) PO PRN (06:20)
--- NOTE | 2023-01-05 07:19 | Anesthesiology Consultation ---
Date of Service January 05, 2023 Assessment & Plan Chart Review Chart Review: data entry initiated History Height/Weight Height: 5 ft 2 in Weight: 72.3 kg Allergies Allergy/AdvReac Type Severity Reaction Status Date / Time No Known Allergies Allergy Verified 01/04/23 17:42 Medications Home Medications Medication Instructions Recorded Confirmed Last Taken aspirin 81 mg chewable tablet 81 mg PO QAM 11/11/21 01/04/23 01/03/23 bupropion HCl 150 mg 24 hr tablet, 150 mg PO QAM 11/11/21 01/04/23 01/03/23 extended release (Wellbutrin XL) coenzyme Q10 100 mg capsule 100 mg PO QAM 11/11/21 01/04/23 01/03/23 (CoQ-10) fluoxetine 10 mg capsule 10 mg PO QAM 11/11/21 01/04/23 01/03/23 cholecalciferol (vitamin D3) 25 25 mcg PO QAM 04/09/22 01/04/23 01/03/23 mcg (1,000 unit) capsule (Vitamin D3) folic acid 400 mcg tablet 0.4 mg PO QAM 04/09/22 01/04/23 01/03/23 lactobacillus combination no.4 3 3,000 mmu cells PO QAM 04/09/22 01/04/23 01/03/23 billion cell capsule (Probiotic) psyllium 1 packet PO 3XWK 04/09/22 01/04/23 05/20/22 calcium carbonate 500 mg calcium 500 mg PO DAILY 01/04/23 01/04/23 01/03/23 (1,250 mg) tablet fluoxetine 20 mg capsule 20 mg PO DAILY 01/04/23 01/04/23 01/03/23 magnesium malate, chelate 125 mg PO QAM 01/04/23 01/04/23 01/03/23 vitamin B12 1 mg-folic acid 0.8 mg 1 tab PO QAM 01/04/23 01/04/23 01/03/23 tablet Active Medications Generic Name Dose Route Start Last Admin Trade Name Freq PRN Reason Stop Dose Admin Acetaminophen 1,000 mg 01/04/23 21:46 01/04/23 22:18 Acetaminophen 500 Mg Tab PO 02/03/23 21:45 1,000 mg TID ELLIOT Administration Oxycodone HCl 5 mg 01/04/23 22:38 01/05/23 06:20 Oxycodone Hcl Ir 5 Mg Tab (Immediate Release) PO 01/18/23 22:37 5 mg Q6H PRN Administration Pain Senna/Docusate Sodium 2 tab 01/04/23 21:46 01/04/23 22:18 Docusate Sodium/Senna 50/8.6mg Tab PO 02/03/23 21:45 2 tab HS ELLIOT Administration Past Medical History Medical History Anxiety Arthritis Brain injury Childhood trauma (fall from highchair) resulting in longstanding right-sided weakness CAD (coronary artery disease) LAD 70% and Circumflex 60/70% stenosis Cataract Depression Intracranial aneurysm x2 Past Family History Family History Father Colon cancer Grandmother (Paternal) Colon cancer Past Surgical History Surgical History History of colonoscopy Hx of arthroscopy of right knee Hx of cardiac catheterization 11/11/21 - [facility] - Dr. Borwn - NO stent placed - Follows Dr. Shaw Hx of cataract extraction LT. Hx of laser iridotomy right eye Hx of tonsillectomy S/P TAVR (transcatheter aortic valve replacement) 12/19/2021 - [facility] - Follows Dr. Shaw Status post coil embolization of cerebral aneurysm [place] - October 2021 - Right MCA bifurcation - follows Dr. Llamas Social History Smoking Status: Never smoker tobacco type: cigarettes Do You Dip or Chew Tobacco: No Hx Alcohol Use: Yes Alcohol type: wine alcohol intake frequency: holidays/special occasions only Hx Substance Use: Yes substance use type: marijuana Last Used Substance: Just Prior to Arrival Physical Exam Vital Signs Last Vital Signs Temp 98.4 F 01/04/23 21:48 Pulse 76 01/04/23 21:48 Resp 16 01/04/23 21:48 BP 163/81 H 01/04/23 21:48 Pulse Ox 97 01/04/23 21:48 O2 Del Method Room Air 01/04/23 21:48 Testing Laboratory Results 01/04/23 18:00 01/04/23 18:00 PT 10.8 Seconds (9.0-12.0) 01/04/23 18:00 INR 1.0 (0.9-1.1) 01/04/23 18:00 APTT 30.0 Seconds (21.0-31.0) 01/04/23 18:00 Urine Color Yellow 01/04/23 19:50 Urine Appearance Cloudy (Clear) A 01/04/23 19:50 Urine pH 8.5 (4.5-7.5) H 01/04/23 19:50 Ur Specific [place] 1.012 (1.000-1.030) 01/04/23 19:50 Urine Protein Negative (Negative) 01/04/23 19:50 Urine Glucose (UA) Negative (Negative) 01/04/23 19:50 Urine Ketones 1+ (Negative) H 01/04/23 19:50 Urine Nitrite Negative (Negative) 01/04/23 19:50 Ur Leukocyte Esterase Negative (Negative) 01/04/23 19:50 Urine WBC (Auto) 1-5 /hpf (0-5) 01/04/23 19:50 Urine RBC (Auto) 5-10 /hpf (0-4) H 01/04/23 19:50 U Hyaline Cast (Auto) 0 /lpf (0-5) 01/04/23 19:50 U Epithel Cells (Auto) 10-20 /lpf (0-5) H 01/04/23 19:50 Urine Bacteria (Auto) Negative (Negative) 01/04/23 19:50 Blood Type A Positive 01/04/23 18:24 Antibody Screen NEGATIVE 01/04/23 18:24 Electrocardiogram Date: 01/04/23 Findings: + NSR @ (73 bpm) Chest X-Ray Date: 01/04/23 Findings: + NAD Echocardiogram Date: 09/04/21 Normal LV size and systolic function with no regional wall motion abnormalities EF 55-60% Low normal global endocardial peak longitudinal strain No LVH Grade 1 diastolic dysfunction of the LV with elevated left atrial pressure Mod dilated LA Normal RV size and function. Normal right atrium. Heavily calcified tricuspid AV Severe aortic stenosis Mild TR Normal estimated pulmonary artery pressures Cardiac Catheterization Date: 11/11/21 Summary: 1. Moderate to severe 2-vessel coronary artery disease -70% focal mid LAD after D2 60 to 70% mid circumflex 2. Normal left and right-sided filling pressures 3. Normal pulmonary artery pressures 4. Preserved cardiac output Recommendations: Proceed with TAVR evaluation Medical management of chronic coronary artery disease
[2023-01-05 07:31] LABS: Basophils # (auto) 0.05 K/uL (0-0.2); Basophils % (auto) 1.1 %; Eosinophils # (auto) 0.66 K/uL (0-0.50); Eosinophils % (auto) 14.3 %; Hematocrit (blood only) 30.6 % (37.0-47.0); Immature Granulocytes # (auto) 0.01 K/uL (0.01-0.20); Immature Granulocytes % (auto) 0.2 %; Lymphocytes # (auto) 1.38 K/uL (1.2-3.4); Lymphocytes % (auto) 29.8 %; Mean Corpuscular Hemoglobin 31.3 pg (25.0-34.0); Mean Corpuscular Hgb Conc 32.7 g/dL (32.0-36.0); Mean Corpuscular Volume 95.6 fL (80.0-100.0); Mean Platelet Volume 10.6 fL (9.4-12.4); Monocytes # (auto) 0.59 K/uL (0.11-0.59); Monocytes % (auto) 12.7 %; Neutrophils # (auto) 1.94 K/uL (1.40-6.50); Neutrophils % (auto) 41.9 %; Platelet Count 183 K/uL (130-400); RDW Standard Deviation 49.2 fL (36.4-46.3); White Blood Count 4.63 K/ul (4.8-10.8)
[2023-01-05 07:46] LABS: BUN Creatinine Ratio 26.4 (10-20); Calcium 8.7 mg/dl (8.6-10.3); Creatinine Clr Calc Pharmacy 53.6 ml/min; Est GFR (African American) 76.6 ml/min; Est GFR (Non-African American) 66.1 ml/min; Potassium 4.6 mmol/L (3.5-5.1)
[2023-01-05] MEDS ORDERED: NON-FORMULARY MEDICATION (Vitamin B12-Folic Acid 1-0.8 mg Tablet) PO SCH (09:00)
[2023-01-05] MEDS ORDERED: [UNRECOGNIZED DRUG - OTHER] PO SCH (09:00)
[2023-01-05] MEDS ORDERED: MAGNESIUM PO SCH (09:00)
[2023-01-05] MEDS: buPROPion XL 150 MG TABCR PO SCH (09:13)
[2023-01-05] MEDS: ACETAMINOPHEN 500 MG TAB PO SCH ×3 (09:13→20:51)
[2023-01-05] MEDS: FLUoxetine HCL 20 MG CAP PO SCH (09:14)
[2023-01-05] MEDS: FLUoxetine HCL 10 MG CAP PO SCH (09:14)
[2023-01-05] MEDS ORDERED: BUPIVACAINE/EPINEPHRINE 0.25% 1:200,000 30 ML VIAL ONE (09:14)
[2023-01-05] MEDS: CALCIUM CARBONATE 500 MG CHEWABLE TAB PO SCH ×2 (09:38→15:49)
[2023-01-05] MEDS: ADVANCED PROBIOTIC 1250 MG CAPSULE PO SCH (09:38)
[2023-01-05] MEDS: PSYLLIUM or GUAR GUM FIBER POWDER PACKET PO SCH (09:39)
[2023-01-05] MEDS ORDERED: fentaNYL citrate PF 100 MCG/2 ML VIAL IV PRN (10:26)
[2023-01-05] MEDS ORDERED: ePHEDrine sulfate 50 MG/ML AMP IV PRN (10:26)
[2023-01-05] MEDS ORDERED: ATROPINE SULFATE 0.1 MG/ML 10ML SYR IV PRN (10:26)
[2023-01-05] MEDS ORDERED: ONDANSETRON INJ 2 MG/ML 2 ML VIAL IV PRN (10:26)
[2023-01-05] MEDS ORDERED: D5W AND 1/2NSS 1,000 ML IV SCH (10:30)
[2023-01-05] MEDS ORDERED: BUPIVACAINE 0.5 % 5 MG/1 ML PF 10ML VIAL ONE (10:34)
--- NOTE | 2023-01-05 10:37 | Electrocardiogram Report ---
Test Reason : Blood Pressure : / mmHG Vent. Rate : 073 BPM Atrial Rate : 073 BPM P-R Int : 172 ms QRS Dur : 094 ms QT Int : 384 ms P-R-T Axes : 089 -28 026 degrees QTc Int : 423 ms Normal sinus rhythm Normal ECG No previous ECGs available Confirmed by Tyrese Shaw ([id number]) on 01/05/2023 10:37:43 AM Referred By: REFERRED SELF Confirmed By:Tyrese Shaw
--- NOTE | 2023-01-05 10:39 | Hospitalist Progress Note ---
Date of Service January 05, 2023 Assessment & Plan (1) Closed fracture of right hip: Plan: Pain management with acetaminophen ELLIOT + morphine 1-2mg PRN CXR - no acute abnormalities, EKG NSR with no acute ischemic changes Patient has a murmurs from prior TAVR Patient is medically optimized for surgery at this time. NPO after midnight Consult orthopedics (2) Contusion of head: Plan: CT head negative for intracranial abnormality Monitor (3) S/P TAVR (transcatheter aortic valve replacement): Plan: Mild coronary artery disease noted on pre-op catheterization. Murmurs on exam. No history of heart failure. Restart aspirin post operatively (4) Depression: Plan: Continue fluoxetine Present on Admission?: Yes Plan VTE Prophyalxis - one dose of Lovenox now then defer to orthopedics post operatively Diet - regular, NPO @ midnight Disposition - admit to med/surg Admission and Anticipated Discharge Date Admission Date: January 04, 2023 Subjective Patient seen pre-op for independent H&P. No prior problems with anesthesia and no personal or family history of Hyperthermia. 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 PSH reviewed TAVR 2021 Cerebral aneurysm CAGE for double bubble 2021 both at [facility]. Patient with no chest pain or shortness of breath. Patient is optomized for anticipated surgery today. Review of Systems Review of Systems: All systems reviewed & are unremarkable except as noted in HPI & below. 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 Physical Exam Constitutional: WD/WN, vitals as above Eyes: PERRL, conjunctivae normal, anicteric sclerae ENMT: external ear and nose normal, oropharynx normal Neck: trachea midline, no thyromegaly Respiratory: normal respiratory effort, lungs clear to auscultation Cardiovascular: Rate/Rhythm: regular rate and regular rhythm Heart Sounds: normal S1, normal S2 and + murmur (systolic, soft flow sound Aortic) Gastrointestinal (Abdomen): normal bowel sounds, soft, nontender, no hepatosplenomegaly Skin: no rashes, warm and dry Neurologic: moves all extremities and awake; not confused Psychiatric: A+Ox3, euthymic affect Results & Data Results & Data Vital Signs (Past 12 Hours) Vital Signs Temp Pulse Resp BP Pulse Ox O2 Del Method 01/05/23 08:00 36.8 C 73 18 138/73 95 Room Air PG Care Time/CCT Total # of Minutes Spent Total Time Spent with Patient: Total time spent is greater than 50% in coordination of care (as documented) at patient's floor/unit and/or counseling patient: 42 minutes Coding Level of Care Code 30299 SUB INP/OBS CARE 2/35MIN Diagnoses Closed fracture of right hip S72.001A Contusion of head S00.93XA Laterality: right S/P TAVR (transcatheter aortic valve replacement) Z95.2 Depression F32.A (2) Contusion of head Laterality: right
[2023-01-05] MEDS ORDERED: PROPOFOL IV EMULSION 10 MG/ML 20 ML VIAL IV ONE (10:52)
[2023-01-05] MEDS ORDERED: fentaNYL citrate PF 100 MCG/2 ML VIAL ONE (10:52)
[2023-01-05] MEDS ORDERED: LIDOCAINE 2% 2 ML VIAL/AMP(20MG/ML) INFIL ONE (10:52)
[2023-01-05] MEDS ORDERED: ceFAZolin 2000MG 2,000 MG/15 ML SYR IV ONE (12:15)
[2023-01-05] MEDS ORDERED: BUPIVACAINE/EPINEPHRINE 0.25% 1:200,000 30 ML VIAL INJ ONE (12:37)
--- NOTE | 2023-01-05 12:51 | Fluoroscopy Report ---
FL hip RT 2-3V CLINICAL HISTORY: RIGHT HIP CANNULATED SCREWS COMPARISON STUDY: 01/04/2023 FLUOROSCOPY TIME: 114.4 seconds FLUOROSCOPY IMAGES: 3 EXPOSURE DOSE: 23.56 mGy FINDINGS: Status post placement of ORIF hardware within the right proximal femur fixating the acute f emoral neck fracture. Mild persistent impaction with slight cortical offset, improved from prior. No dislocation or unexpected opaque foreign body. IMPRESSION: Fluoroscopic assistance as above. ACT 112: Negative or not required by law. Electronically signed by: Juan Pablo Marion M.D. 01/05/2023 12:49 PM
[2023-01-05] MEDS ORDERED: ONDANSETRON INJ 2 MG/ML 2 ML VIAL ONE (13:05)
[2023-01-05] MEDS ORDERED: hydrALAZINE HCL 20 MG/ML VIAL IV ONE (13:09)
[2023-01-05] MEDS ORDERED: hydrALAZINE HCL 20 MG/ML VIAL ONE (13:15)
[2023-01-05] MEDS ORDERED: PROMETHAZINE HCL 6.25 MG in SODIUM CHLORIDE 0.9% 50 ML IV STA (13:21)
--- NOTE | 2023-01-05 13:41 | Operative Report ---
PG Post Operative Report Pre & Post Diagnosis Operation Date: 01/05/23 11:00 Pre-Op Diagnosis: Right femoral neck fracture Post-Op Diagnosis: Right femoral neck fracture I identified the patient and participated in the time-out.: Yes Procedure Operation Date: 01/05/23 11:00 Actual Procedures Right femoral neck fracture closed reduction and internal fixation with Synthes femoral neck system- Chavez Christian MD Surgeon Chavez Christian MD Mail Order Biller None Estimated Blood Loss 100 Findings See Below Valgusimpacted, subcapital, and stable femoral neck fracture All Synthes implants: Femoral neck system plate 1 hole; 5 mm titanium locking screw self-tapping 46 millimeters; bolt for femoral neck system 75 millimeters; antirotation screw for femoral neck system 75 millimeters Specimens none Anesthesia Type MAC Spinal Regional Complications none Disposition Accompanied Patient To Recovery: No Disposition: Recovery Room Indications 72-year-old female sustained fall 5 days ago resulting in right hip pain that became progressive and resulted in the inability to bear weight. She was diagnosed with a valgus impacted femoral neck fracture in the emergency room. Orthopedics was consulted for definitive management. I reviewed the x-rays with her and her significant other in detail. My recommendation was for surgical stabilization to preserve her [place] hip and increase the likelihood of healing the fracture before further displacement. Discussed the risks and benefits of the surgery in detail, as outlined in the preoperative note. Informed consent was obtained today in the preoperative area. Description of Procedure On the day of surgery should be was greeted in the preoperative holding area and the informed consent was reviewed and confirmed. The surgical site was then identified by the patient and signed by myself. Spinal anesthetic was performed by anesthesia. It had good effect. The patient was taken to the operating placed by the OR table and anesthesia was induced. The patient is then positioned on the fracture table. All [place] prominences were well padded. The operative foot was placed in the fracture boot with abundant padding. The well leg was secured. We then positioned the lower extremities in a scissor fashion with a non-op leg flexed down to allow visualization with fluoroscopy which was confirmed before we prepped and draped. Surgical timeout was called and verified by all present. Antibiotics were infused, and equipment was available and functional. The procedure was initiated with a closed reduction maneuvers. [Fluoroscopy was used to ensure appropriate alignment. [Gentle abduction and inline traction was induced with the fracture table. Given the valgusimpacted fracture pattern, the fracture appeared to be stable and in acceptable alignment. Fluoroscopy was used to line up x-rays and position of the hip for fixation.] The leg was then prepped and draped in usual sterile fashion. Surgical timeout was reconfirmed. We initiated the surgical internal fixation portion with finding the start point on the lateral cortex of the femur. Fluoroscopic gu idance was used and a small poke hole was established. The start point was confirmed on fluoroscopy in AP and lateral planes and the pin was advanced. An incision was made about the pin to allow access for the instruments and plate. The pin was directed toward the center position of the femoral head. Fluoroscopy was used on multiple planes to confirm adequate positioning. The length of our central bolt was then taken off that central pin under fluoroscopy. The reamer device was set to match the length of the central bolt. The reamer was then advanced under fluoroscopic guidance until it engaged the lateral trochanter. The bolt and plate construct matching our measured length was constructed on the back table and loaded onto the guide. The guide was then used to introduce the bolt and plate construct over the central guidewire. The cannula for the locking screw on the plate was placed. This was drilled under fluoroscopic guidance and measured using the drill pin. The locking screw was then selected and introduced. The torque limiting screwdriver was used for final tightening. This locked our plate to the femur. The antirotation screw drill was then set for the appropriate length and it was drilled via the guide and checked under fluoroscopy. Positioning and length was acceptable in multiple fluoroscopic planes. The appropriate length of the antirotation screw was selected and loaded and placed, using the torque limiting screwdriver for final tightening. This completed the fixation of the fracture. Fluoroscopy was used in both AP and lateral planes to evaluate the entirety of the fracture and implant. Reduction and implant positions were acceptable. The wounds were then thoroughly irrigated with bulb syringe and normal saline. The deep fascial layer was approximated with #1 Vicryl suture. The dermal layer was approximated using 2-0 Vicryl suture. The final skin closure was completed with maury. Wounds were dressed with sterile Xeroform, sterile gauze, ABD, and Ioban. The patient tolerated procedure well, awoke from anesthesia without complication, and transferred to the recovery area in stable condition. Disposition: The patient will be [weightbearing as tolerated]. I recommended routine DVT prophylaxis consisting [aspirin therapy]. DVT prophylaxis should last 6 weeks. 24 hours of antibiotic prophylaxis should be continued. I attest to the content of the Intraoperative Record and any orders documented therein. Any exceptions are noted below.
--- NOTE | 2023-01-05 13:49 | Anesthesiology Progress Note ---
Date of Service January 05, 2023 Anesthesia Post Procedure Vital Signs Vital Signs: Temp Pulse Pulse Pulse Resp BP BP 01/05/23 13:45 97.5 F L 68 16 174/70 H 01/05/23 13:35 68 12 166/81 H 01/05/23 13:25 69 14 208/90 H 01/05/23 13:15 68 14 197/93 H 01/05/23 13:05 72 12 204/84 H 01/05/23 12:54 96.3 F L 71 16 174/81 H 01/05/23 08:00 98.2 F 73 18 138/73 01/04/23 21:48 01/04/23 21:48 01/04/23 21:48 98.4 F 76 16 163/81 H 01/04/23 18:04 75 18 160/88 H 01/04/23 14:07 97.7 F 72 16 144/63 H Pulse Ox O2 Del Method O2 Flow Rate 01/05/23 13:45 98 Room Air 01/05/23 13:35 97 Room Air 01/05/23 13:25 95 Room Air 01/05/23 13:15 98 Room Air 01/05/23 13:05 98 Room Air 01/05/23 12:54 98 Oxymask 6 01/05/23 08:00 95 Room Air 01/04/23 21:48 Room Air 01/04/23 21:48 Room Air 01/04/23 21:48 97 Room Air 01/04/23 18:04 97 Room Air 01/04/23 14:07 99 Room Air Pain Intensity Right Hip: Pain Intensity: 4 Transfer of Care Handoff Completed per policy Notes Mental Status: alert / awake / arousable and participated in evaluation Patient Amnestic to Procedure: Yes Nausea / Vomiting: adequately controlled Pain: adequately controlled Airway Patency, RR, SpO2: stable & adequate BP & HR: stable & adequate Hydration State: stable & adequate Neuraxial Anesthesia: was administered and sensory block is resolving Anesthetic Complications: no major complications apparent and Pt Satisfied with anesthetic care
[2023-01-05] MEDS ORDERED: oxyCODONE HCL IR 5 MG TAB (IMMEDIATE RELEASE) PO PRN (14:22)
[2023-01-05] MEDS ORDERED: diazePAM 5 MG TABLET PO PRN (15:34)
--- NOTE | 2023-01-05 16:07 | History & Physical Bridge Note ---
Date of Service January 05, 2023 at 1030 History & Physical Bridge Note I have examined the patient, reviewed the History & Physical and in the interval since the performance of the History & Physical I have noted the following changes of clinical significance: no changes noted
--- NOTE | 2023-01-05 18:17 | XRay Report ---
XR hip RT min 2V HISTORY: 72 years-old Female Post-Operative implant position COMPARISON: Fluoroscopic images of same day TECHNIQUE: 2 views of the right hip FINDINGS: Status post placement of ORIF hardware within the right proximal femur fixating the acute femoral nec k fracture. Mild persistent impaction with slight cortical offset, improved from prior. Lateral skin maury. No dislocation or unexpected opaque foreign body. IMPRESSION: Improved alignment of the acute right femoral neck fracture status post ORIF. ACT 112: Negative or not required by law. The above report was generated using voice recognition software. It may contain grammatical, syntax o r spelling errors. Electronically signed by: Juan Pablo Marion M.D. 01/05/2023 6:15 PM
[2023-01-05] MEDS: ASPIRIN 81 MG ECTAB PO SCH (20:51)
[2023-01-05] MEDS: DOCUSATE SODIUM/SENNA 50/8.6MG TAB PO SCH (20:51)
[2023-01-05] MEDS: ceFAZolin 2000MG 2,000 MG/15 ML SYR IV SCH (20:51)
[2023-01-05] MEDS: KETOROLAC TROMETHAMINE 15 MG/ML VIAL IV PRN (20:54)
[2023-01-05] MEDS ORDERED: Nursing to Pharmacy Communication SCH (21:30)
[2023-01-06] MEDS: ceFAZolin 2000MG 2,000 MG/15 ML SYR IV SCH (03:32)
[2023-01-06] MEDS: oxyCODONE HCL IR 5 MG TAB (IMMEDIATE RELEASE) PO PRN ×2 (03:33→09:30)
[2023-01-06] MEDS: KETOROLAC TROMETHAMINE 15 MG/ML VIAL IV PRN (07:55)
[2023-01-06 08:12] LABS: Basophils # (auto) 0.03 K/uL (0-0.2); Basophils % (auto) 0.6 %; Hematocrit (blood only) 27.1 % (37.0-47.0); Hemoglobin 8.9 g/dl (12.0-16.0); Immature Granulocytes # (auto) 0.01 K/uL (0.01-0.20); Immature Granulocytes % (auto) 0.2 %; Lymphocytes # (auto) 0.94 K/uL (1.2-3.4); Lymphocytes % (auto) 18.8 %; Mean Corpuscular Hemoglobin 31.1 pg (25.0-34.0); Mean Corpuscular Hgb Conc 32.8 g/dL (32.0-36.0); Mean Corpuscular Volume 94.8 fL (80.0-100.0); Mean Platelet Volume 10.5 fL (9.4-12.4); Monocytes # (auto) 0.49 K/uL (0.11-0.59); Monocytes % (auto) 9.8 %; Neutrophils # (auto) 3.12 K/uL (1.40-6.50); Neutrophils % (auto) 62.6 %; Platelet Count 182 K/uL (130-400); RDW Standard Deviation 48.9 fL (36.4-46.3); Red Blood Count 2.86 M/uL (4.20-5.40); White Blood Count 4.99 K/ul (4.8-10.8)
[2023-01-06 08:36] LABS: BUN Creatinine Ratio 26.5 (10-20); Calcium 8.6 mg/dl (8.6-10.3); Creatinine Clr Calc Pharmacy 68.6 ml/min; Est GFR (African American) 100.6 ml/min; Est GFR (Non-African American) 86.8 ml/min; Potassium 3.9 mmol/L (3.5-5.1)
[2023-01-06] MEDS: FLUoxetine HCL 20 MG CAP PO SCH (09:31)
[2023-01-06] MEDS: buPROPion XL 150 MG TABCR PO SCH (09:31)
[2023-01-06] MEDS: ASPIRIN 81 MG ECTAB PO SCH ×2 (09:31→20:20)
[2023-01-06] MEDS: CALCIUM CARBONATE 500 MG CHEWABLE TAB PO SCH (09:31)
[2023-01-06] MEDS: ACETAMINOPHEN 500 MG TAB PO SCH ×3 (09:31→20:19)
[2023-01-06] MEDS: CHOLECALCIFEROL 1,000 UNITS 25 MCG TAB PO SCH (09:31)
[2023-01-06] MEDS: FLUoxetine HCL 10 MG CAP PO SCH (09:32)
[2023-01-06] MEDS: ADVANCED PROBIOTIC 1250 MG CAPSULE PO SCH (09:32)
--- NOTE | 2023-01-06 12:33 | Orthopedic Progress Note ---
Date of Service January 06, 2023 Assessment & Plan (1) Fracture of femoral neck, right, closed: s/p Right femoral neck fracture closed reduction and internal fixation with Synthes femoral neck system (DOS 01/05/2023; Dr. Christian) -Looks stable on POD 1 -Pain controlled on current regimen -Dressing in place until POD 3; then changed daily prn -Post op abx for 24 hrs post op -ASA for DVT ppx x 6 weeks -Recommend PT/OT; WBAT to RLE Disposition: Per PT/OT, anticipate inpatient rehab vs SNF Subjective Feels fine overall. Having pain but controlled adequately with PO narcotics. Review of Systems All systems reviewed & are unremarkable except as noted in HPI & below. Physical Exam General: Pleasant 72 y/o/f resting comfortably in bed in NAD. AAO x 4. RLE: Mild incisional tenderness. Dressing C/D/I, scant drainage within dressing. Leg lengths equal. Distally NVI. Results & Data Results & Data Laboratory Results Reviewed - Expected Hgb drop (8.9 from 10.0); otherwise unremarkable. . Diagnostic Findings Reviewed - Post op XRs with expected findings and no malposition of hardware. . PG Care Time/CCT Total # of Minutes Spent Total Time Spent with Patient: Total time spent is greater than 50% in coordination of care (as documented) at patient's floor/unit and/or counseling patient: Coding Level of Care Code 60899 Post Operative Follow-Up Diagnoses Fracture of femoral neck, right, closed S72.001A Encounter type: initial encounter (1) Fracture of femoral neck, right, closed Encounter type: initial encounter Qualified Code(s): S72.001A - Fracture of unspecified part of neck of right femur, initial encounter for closed fracture
[2023-01-06] MEDS: DOCUSATE SODIUM/SENNA 50/8.6MG TAB PO SCH (20:20)
[2023-01-07] MEDS: KETOROLAC TROMETHAMINE 15 MG/ML VIAL IV PRN (04:07)
[2023-01-07] MEDS ORDERED: PROCHLORPERAZINE 5 MG in SYRINGE 4 ML IV PRN (04:10)
[2023-01-07] MEDS: PSYLLIUM or GUAR GUM FIBER POWDER PACKET PO SCH (08:51)
[2023-01-07] MEDS: ASPIRIN 81 MG ECTAB PO SCH (08:51)
[2023-01-07] MEDS: FLUoxetine HCL 20 MG CAP PO SCH (08:52)
[2023-01-07] MEDS: CHOLECALCIFEROL 1,000 UNITS 25 MCG TAB PO SCH (08:52)
[2023-01-07] MEDS: ACETAMINOPHEN 500 MG TAB PO SCH ×2 (08:52→14:55)
[2023-01-07] MEDS: ADVANCED PROBIOTIC 1250 MG CAPSULE PO SCH (08:52)
[2023-01-07] MEDS: FLUoxetine HCL 10 MG CAP PO SCH (08:52)
[2023-01-07] MEDS: CALCIUM CARBONATE 500 MG CHEWABLE TAB PO SCH (08:52)
[2023-01-07] MEDS: buPROPion XL 150 MG TABCR PO SCH (08:53)
[2023-01-07 09:29] LABS: Basophils # (auto) 0.04 K/uL (0-0.2); Basophils % (auto) 0.7 %; Eosinophils # (auto) 0.49 K/uL (0-0.50); Eosinophils % (auto) 9.1 %; Hematocrit (blood only) 28.8 % (37.0-47.0); Hemoglobin 9.6 g/dl (12.0-16.0); Immature Granulocytes # (auto) 0.01 K/uL (0.01-0.20); Immature Granulocytes % (auto) 0.2 %; Lymphocytes # (auto) 0.97 K/uL (1.2-3.4); Lymphocytes % (auto) 18.1 %; Mean Corpuscular Hemoglobin 30.7 pg (25.0-34.0); Mean Corpuscular Hgb Conc 33.3 g/dL (32.0-36.0); Mean Platelet Volume 10.4 fL (9.4-12.4); Monocytes # (auto) 0.36 K/uL (0.11-0.59); Monocytes % (auto) 6.7 %; Neutrophils # (auto) 3.49 K/uL (1.40-6.50); Neutrophils % (auto) 65.2 %; Platelet Count 200 K/uL (130-400); RDW Coefficient of Variation 13.7 % (11.5-14.5); RDW Standard Deviation 46.4 fL (36.4-46.3); Red Blood Count 3.13 M/uL (4.20-5.40); White Blood Count 5.36 K/ul (4.8-10.8)
--- NOTE | 2023-01-07 11:15 | Hospitalist Progress Note ---
Date of Service January 06, 2023 Assessment & Plan (1) Closed fracture of right hip: Plan: Pain management with acetaminophen ELLIOT + morphine 1-2mg PRN CXR - no acute abnormalities, EKG NSR with no acute ischemic changes Patient has a murmurs from prior TAVR Patient is medically optimized for surgery at this time. NPO after midnight Consult orthopedics (2) Contusion of head: Plan: CT head negative for intracranial abnormality Monitor (3) S/P TAVR (transcatheter aortic valve replacement): Plan: Mild coronary artery disease noted on pre-op catheterization. Murmurs on exam. No history of heart failure. Restart aspirin post operatively (4) Depression: Plan: Continue fluoxetine Plan VTE Prophyalxis - one dose of Lovenox now then defer to orthopedics post operatively Diet - regular, NPO @ midnight Disposition - admit to med/surg Admission and Anticipated Discharge Date Admission Date: January 04, 2023 Subjective Patient seen pre-op for independent H&P. No prior problems with anesthesia and no personal or family history of Hyperthermia. 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 PS reviewed TAVR 2021 Cerebral aneurysm CAGE for double bubble 2021 both at . Patient with no chest pain or shortness of breath. Patient is seen on POD#1 today. Review of Systems Review of Systems: All systems reviewed & are unremarkable except as noted in Subjective Physical Exam Constitutional: WD/WN, vitals as above Eyes: PERRL, conjunctivae normal, anicteric sclerae ENMT: external ear and nose normal, oropharynx normal Respiratory: normal respiratory effort, lungs clear to auscultation Cardiovascular: RRR, no murmur, no edema Musculoskeletal: no cyanosis or clubbing, extremities motor strength 5/5 Results & Data Results & Data Vital Signs (Past 12 Hours) Vital Signs Temp Pulse Resp BP Pulse Ox O2 Del Method 01/07/23 07:38 36.7 C 69 18 150/76 H 97 Room Air PG Care Time/CCT Total # of Minutes Spent Total Time Spent with Patient: Total time spent is greater than 50% in coordination of care (as documented) at patient's floor/unit and/or counseling patient: Coding Level of Care Code 62421 SUB INP/OBS CARE 35MIN Diagnoses Closed fracture of right hip S72.001A Contusion of head S00.93XA Laterality: right S/P TAVR (transcatheter aortic valve replacement) Z95.2 Depression F32.A Time Spent (min) 42 (2) Contusion of head Laterality: right
--- NOTE | 2023-01-07 12:18 | Orthopedic Progress Note ---
Date of Service January 07, 2023 Assessment & Plan (1) Fracture of femoral neck, right, closed: POD2 s/p Right femoral neck fracture closed reduction and internal fixation with Synthes femoral neck system (DOS 01/05/2023; Dr. Christian) -Making excellent progress -Dressing in place until POD 3; then changed daily prn -ASA for DVT ppx x 6 weeks -Recommend PT/OT; WBAT to RLE Disposition: Per PT/OT progress. Ortho discharge instructions placed. Tigertext w questions Subjective Pain improved. Ambulatory w therapy. Thinks she is doing well. No new issues Review of Systems All systems reviewed & are unremarkable except as noted in HPI & below. Physical Exam Right hip: dressing c/d/i. DNVI. Constitutional WD/WN, vitals as above no acute distress and not intoxicated appearing Respiratory normal respiratory effort; no labored breathing Cardiovascular Extremities: normal capillary refill Results & Data Results & Data Laboratory Results . Diagnostic Findings . PG Care Time/CCT Total # of Minutes Spent Total Time Spent with Patient: Total time spent is greater than 50% in coordination of care (as documented) at patient's floor/unit and/or counseling patient: Coding Level of Care Code 39066 Post Operative Follow-Up Diagnoses Fracture of femoral neck, right, closed S72.001A Encounter type: initial encounter (1) Fracture of femoral neck, right, closed Encounter type: initial encounter Qualified Code(s): S72.001A - Fracture of unspecified part of neck of right femur, initial encounter for closed fracture
--- NOTE | 2023-01-07 16:56 | Discharge Summary ---
Discharge Summary Date of Service January 07, 2023 Admission HPI Per Admitting Provider Anastasiya Chapin is a 72 year old female who presents to the ER with right hip pain after a fall on Thursday. She was holding her dog that was jerking away from her and suddenly let up on the tension that she fell onto her right hip and then hit her head. She did not seek medical attention and has not moved around the house much since. Severity hip pain 0/10 without movement, pain only while walking on it. She tried to do more walking yesterday which increased the pain then and today therefore she decided to come to the ER. No loss of consciousness with the fall. She is not on anticoagulation but takes an aspiring for coronary artery disease (picked up incidentally on pre-op catheterization for TAVR). Other history includes an incidental brain aneurysm which was operated on 7-8 years ago. At 10 months old she had a traumatic injury from falling from a high chair causing right sided weakness which she still has some residual effects especially in her right ankle and toes from this. Most recently she had a TAVR procedure for severe aortic stenosis in December last year - no problems since then and no prior diagnosis of heart failure. She has never had a heart attack or stroke. No chest pain or shortness of breath on exertion although this is limited by her knee arthritis. Principal Dx & Hospital Course #1 = Principal Diagnosis (1) Closed fracture of right hip: Pain management with acetaminophen ELLIOT + morphine 1-2mg PRN CXR - no acute abnormalities, EKG NSR with no acute ischemic changes Patient has a murmurs from prior TAVR Patient is medically optimized for surgery at this time. NPO after midnight Consult orthopedics (2) Contusion of head: CT head negative for intracranial abnormality Monitor (3) S/P TAVR (transcatheter aortic valve replacement): Mild coronary artery disease noted on pre-op catheterization. Murmurs on exam. No history of heart failure. Restart aspirin post operatively (4) Depression: Continue fluoxetine Plan VTE Prophyalxis - one dose of Lovenox now then defer to orthopedics post operatively Diet - regular, NPO @ midnight Disposition - admit to med/surg Discharge Exam Constitutional WD/WN, vitals as above Eyes PERRL, conjunctivae normal, anicteric sclerae ENMT external ear and nose normal, oropharynx normal Neck trachea midline, no thyromegaly Respiratory normal respiratory effort, lungs clear to auscultation Cardiovascular RRR, no murmur, no edema Rate/Rhythm: regular rate and regular rhythm Heart Sounds: normal S1, normal S2 and + murmur (systolic, soft flow sound Aorti c) Gastrointestinal (Abdomen) normal bowel sounds, soft, nontender, no hepatosplenomegaly Musculoskeletal no cyanosis or clubbing, extremities motor strength 5/5 Skin no rashes, warm and dry Neurologic moves all extremities and awake; not confused Psychiatric A+Ox3, euthymic affect Updated Medication List Medication Instructions Recorded Confirmed Type aspirin 81 mg chewable tablet 81 mg PO QAM 11/11/21 01/04/23 History bupropion HCl 150 mg 24 hr tablet, 150 mg PO QAM 11/11/21 01/04/23 History extended release (Wellbutrin XL) coenzyme Q10 100 mg capsule 100 mg PO QAM 11/11/21 01/04/23 History (CoQ-10) fluoxetine 10 mg capsule 10 mg PO QAM 11/11/21 01/04/23 History cholecalciferol (vitamin D3) 25 25 mcg PO QAM 04/09/22 01/04/23 History mcg (1,000 unit) capsule (Vitamin D3) folic acid 400 mcg tablet 0.4 mg PO QAM 04/09/22 01/04/23 History lactobacillus combination no.4 3 3,000 mmu cells PO QAM 04/09/22 01/04/23 History billion cell capsule (Probiotic) psyllium 1 packet PO 3XWK 04/09/22 01/04/23 History calcium carbonate 500 mg calcium 500 mg PO DAILY 01/04/23 01/04/23 History (1,250 mg) tablet fluoxetine 20 mg capsule 20 mg PO DAILY 01/04/23 01/04/23 History magnesium malate, chelate 125 mg PO QAM 01/04/23 01/04/23 History vitamin B12 1 mg-folic acid 0.8 mg 1 tab PO QAM 01/04/23 01/04/23 History tablet aspirin 81 mg tablet,delayed 81 mg PO BID #30 tabs 01/07/23 Rx release sennosides 8.6 mg-docusate sodium 2 tab PO HS #30 tabs 01/07/23 Rx 50 mg tablet (Senokot-S) Hospital Stay Data Consultations 01/04/23 19:12 ED Decision to Admit Stat 01/04/23 21:46 Consult Orthopedic Surgery Routine Procedures Performed Operation Date: 01/05/23 11:00 Actual Procedures p ORIF Hip Cannulated Screw(Right) - Chavez Christian MD Diagnostic Imagining Performed 01/04/23 14:27 CT head/brain wo con Stat 01/05/23 FL hip RT 2-3V Routine Pending Results Patient Have Any Pending Studies at Discharge: No Discharge Instructions Given to Patient (Per Discharging Provider) Orthopaedic Instructions after Hip Fracture Surgery: Please keep your wound clean and dry. Do not remove any of the maury. [place] were removed at your follow-up appointment with orthopedic surgery. Please continue daily dressing changes until your follow-up appointment. If there is no drainage onto the dressing for total of 24 hours, you may shower after 5 days from surgery. Allow soap and water to run over the incision, no scrubbing, and pat dry. Do not submerse (sitting in bathtub, hot tub, jacuzzi, pool, etc) the wound for at least 3 weeks. You may bear weight on your lower extremities as tolerated. Please use the walker or as instructed by physical therapy. For pain control please use Tylenol as needed. You may also have a stronger pain medication prescribed to you at discharge. You can also apply ice to the surgical site. To reduce the risk of dangerous blood clots please continue aspirin 325 mg by mouth daily or the medication for blood clots recommended by your medical team. Orthopedic clinic follow-up should be in 2-3 weeks after surgery for repeat x- ray. [place] can be removed at the orthopedic follow-up. If necessary, muary can be removed by a nurse at home or at a nursing facility upon our order. Please contact the clinic. Home Health Attestation I certify that this patient is under my care and that I, or a physicians assistant merchandiser working with me, had a face to-face encounter that meets the home health [id number] encounter requirements with this patient. The encounter with the patient was in whole, or in part, for the following medical condition, which is the primary reason for home health care (list medical condition): Right Hip fracture I certify that, based on my findings, the following services are medically necessary home health services: My clinical findings support the need for the above services because: OT Assess ADL Status and Restore Function w ADLs PT Assessment for Endurance / Balance / Strength PT Eval for Safety and Mobility PT Eval for Safety, Gait Training, Assistive Devices PT Gait and Balance Training, Strengthening and Safety Safety Further, I certify that my clinical findings support that this patient is homebound (i.e. absences from home require considerable and taxing effort and are for medical reasons or confucianism services or infrequently or of short duration when for other reasons) because: Supportive Aid - Walker Certification for Home Health Services: Based on the above findings, I certify that this patient is confined to the home and needs intermittent halfway care, physical therapy and/or speech therapy or continues to need occupational therapy. The patient is under my care, and I have initiated the establishment of the plan of care. This patient will be followed by a physician who will periodically review the plan of care. Total Time Total Time Spent Total Time Spent (In Minutes): 60 Coding Level of Care Code 65455 INP/OBS DISCH >30 MIN Diagnoses Closed fracture of right hip S72.001A Contusion of head S00.93XA Laterality: right S/P TAVR (transcatheter aortic valve replacement) Z95.2 Depression F32.A Time Spent (min) 50
== END 2023-01-07 17:52 | disposition home health service (06) | DRG 481 ==
LOC: ED 14:06 → SUATTDRO 18:47 → 3N 18:47

== ENCOUNTER 2023-10-06 05:12 | Inpatient (IN) ==
--- NOTE | 2023-09-15 14:01 | PAT Medication Instructions ---
Medication Instructions Date of Service September 15, 2023 Home Medications Medication Instructions Recorded aspirin 81 mg tablet,delayed 81 mg PO BID #30 tabs 01/07/23 release tramadol 50 mg tablet 50 mg PO Q6H PRN pain, initial 01/12/23 therapy #12 tabs bupropion HCl 150 mg 24 hr tablet, extended release (Wellbutrin XL) 150 mg PO QAM coenzyme Q10 100 mg capsule (CoQ-10) 100 mg PO QAM cholecalciferol (vitamin D3) 25 mcg (1,000 unit) capsule (Vitamin D3) 25 mcg PO QAM folic acid 400 mcg tablet 0.4 mg PO QAM calcium carbonate 500 mg calcium (1,250 mg) tablet 500 mg PO QAM fluoxetine 20 mg capsule 20 mg PO QAM magnesium malate, chelate 125 mg PO QAM vitamin B12 1 mg-folic acid 0.8 mg tablet 1 tab PO QAM aspirin 81 mg tablet,delayed release 81 mg PO BID tramadol 50 mg tablet 50 mg PO Q6H PRN pain, initial therapy amlodipine 2.5 mg tablet 2.5 mg PO QAM pravastatin 10 mg tablet 10 mg PO QAM sennosides 8.6 mg-docusate sodium 50 mg tablet (Senokot-S) 2 tab PO HS PRN Constipation turmeric 400 mg capsule 400 mg PO QAM ASK your prescriber and surgeon aspirin 81 mg tablet,delayed release 81 mg PO BID STOP taking 2 weeks before surgery (or as soon as possible if surgery is within 2 weeks) coenzyme Q10 100 mg capsule (CoQ-10) 100 mg PO QAM turmeric 400 mg capsule 400 mg PO QAM DO NOT take the morning of surgery cholecalciferol (vitamin D3) 25 mcg (1,000 unit) capsule (Vitamin D3) 25 mcg PO QAM folic acid 400 mcg tablet 0.4 mg PO QAM calcium carbonate 500 mg calcium (1,250 mg) tablet 500 mg PO QAM magnesium malate, chelate 125 mg PO QAM vitamin B12 1 mg-folic acid 0.8 mg tablet 1 tab PO QAM Take morning of surgery With a small sip of water, OTHERWISE NOTHING TO EAT OR DRINK AFTER MIDNIGHT: bupropion HCl 150 mg 24 hr tablet, extended release (Wellbutrin XL) 150 mg PO QAM fluoxetine 20 mg capsule 20 mg PO QAM tramadol 50 mg tablet 50 mg PO Q6H PRN pain, initial therapy (if needed) amlodipine 2.5 mg tablet 2.5 mg PO QAM pravastatin 10 mg tablet 10 mg PO QAM Take evening before surgery tramadol 50 mg tablet 50 mg PO Q6H PRN pain, initial therapy (if needed) sennosides 8.6 mg-docusate sodium 50 mg tablet (Senokot-S) 2 tab PO HS PRN Constipation (if needed) Other Notes If you have any questions please call us at [phone] or [phone] or [phone] or [phone]
--- NOTE | 2023-09-18 11:38 | Anesthesiology Consultation ---
Date of Service September 18, 2023 Assessment & Plan (1) Encounter for pre-operative examination: - awaiting stress echo 09/21 ordered by [facility] cardiology and final cardio clearance. - cardiology office visit 09/07/23: "...chest pressure with jaw pain while puttin g sheets on her bed about a month ago...dissipated within about 2-3 minutes...has not had any further symptoms.. stress echo prior to surgery would be a good idea...scheduled for 09/21...carotid bruit on the left...may just be her murmur radiating up her carotid artery..." - patient reports recent dental procedure and upcoming cap placement. Surgeon's office made aware and patient advised she needs to remain in communication with surgeon's office in case there are any surgical concerns regarding this. She verbalized understanding. - Outpatient joint assessment: Patient is currently scheduled for inpatient pathway. If re-evaluated and patient/surgeon requests outpatient pathway, patient is not recommended candidate for outpatient joint program from anesthesia standpoint. Chart Review Chart Review: Pending: Refer to Additional Notes / Consult section and Patient seen in Pre Admission Testing Teaching & Discussion Pre-Anesthesia Teaching/Discussion Notes: Instructed NPO after midnight before surgery, except medications with 15 cc of water. Medication instructions provided according to the PAT guidelines. History Surgery Operation Date: 10/06/23 10:10 Proposed Procedures p Right Total Knee Arthroplasty(Right) - Teofilo Pleitez MD Height/Weight Height: 5 ft 2 in Weight: 66.1 kg Allergies Allergy/AdvReac Type Severity Reaction Status Date / Time No Known Allergies Allergy Verified 09/15/23 13:17 Medications Home Medications Medication Instructions Recorded Confirmed Last Taken bupropion HCl 150 mg 24 hr tablet, 150 mg PO QAM 11/11/21 09/15/23 01/03/23 extended release (Wellbutrin XL) coenzyme Q10 100 mg capsule 100 mg PO QAM 11/11/21 09/15/23 01/03/23 (CoQ-10) cholecalciferol (vitamin D3) 25 25 mcg PO QAM 04/09/22 09/15/23 01/03/23 mcg (1,000 unit) capsule (Vitamin D3) folic acid 400 mcg tablet 0.4 mg PO QAM 04/09/22 09/15/23 01/03/23 calcium carbonate 500 mg calcium 500 mg PO QAM 01/04/23 09/15/23 01/03/23 (1,250 mg) tablet fluoxetine 20 mg capsule 20 mg PO QAM 01/04/23 09/15/23 01/03/23 magnesium malate, chelate 125 mg PO QAM 01/04/23 09/15/23 01/03/23 vitamin B12 1 mg-folic acid 0.8 mg 1 tab PO QAM 01/04/23 09/15/23 01/03/23 tablet aspirin 81 mg tablet,delayed 81 mg PO BID #30 tabs 01/07/23 09/15/23 Unknown release tramadol 50 mg tablet 50 mg PO Q6H PRN pain, initial 01/12/23 09/15/23 Unknown therapy #12 tabs amlodipine 2.5 mg tablet 2.5 mg PO QAM 09/15/23 09/15/23 Unknown pravastatin 10 mg tablet 10 mg PO QAM 09/15/23 09/15/23 Unknown sennosides 8.6 mg-docusate sodium 2 tab PO HS PRN Constipation 09/15/23 09/15/23 Unknown 50 mg tablet (Senokot-S) turmeric 400 mg capsule 400 mg PO QAM 09/15/23 09/15/23 Unknown Past Medical History Medical History (Updated 09/18/23 @ 11:35 by Kimberly Johnson PA-C) Anxiety Balance problem Brain injury Childhood trauma (fall from highchair) resulting in longstanding right-sided weakness CAD (coronary artery disease) LAD 70% and Circumflex 60/70% stenosis Closed 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 Exercise / Class Metabolic Activity III < 4 Walking/Shop/Light housework (ambulates with cane, denies chest discomfort or shortness of breath with usual activities) Past Family History Family History Father Colon cancer Grandmother (Paternal) Colon cancer Past Surgical History Surgical History History of colonoscopy History of hip surgery Rt Hx of arthroscopy of right knee Hx of cardiac catheterization 11/11/21 - [facility] - Dr. Brown - NO stent placed - Follows Dr. Shaw Hx of cataract extraction BL Hx of laser iridotomy right eye Hx of tonsillectomy S/P TAVR (transcatheter aortic valve replacement) 12/19/2021 - [facility] - Follows Dr. Shaw Status post coil embolization of cerebral aneurysm [place] - October 2021 - Right MCA bifurcation - follows Dr. Llamas Past Anesthesia History No Hx of Anesthesia Complications and No Family Hx of Anesthesia Complications History of PONV No Hx of Motion Sickness and History of PONV (with SUZANNA, denies needing scop patch) Social History Smoking Status: Former smoker tobacco type: cigarettes Do You Dip or Chew Tobacco: No Smoking End Date: 2002 Hx Alcohol Use: Yes Alcohol type: wine alcohol intake frequency: holidays/special occasions only Hx Substance Use: Yes substance use type: marijuana (on weekends) Review of Systems Snoring, denies witnessed apneas. Patient denies chest pain, shortness of breath, dyspnea on exertion, fever, chills, cough, wheezing, or palpitations. Physical Exam Vital Signs Vitals BP 116/72 P 73 TEMP 98.1 SP02 96% on RA RESP 17 Physical Patient resting comfortably in chair in no acute distress, alert and oriented, responding appropriately throughout visit Full cervical extension range of motion without pain TMD 3.5 finger breadths Mallampati Score 2 Dentition: several broken teeth, denies loose teeth, caps/crowns, implants or bridges Lungs: normal respiratory effort. Good air movement, clear throughout to auscultation, no adventitious breath sounds Cardiac: regular rate and rhythm, 3/6 systolic murmur-no gallops or rubs Carotid arteries: negative bruit bilat Lab Results Anesthesia Preop Results Results Anesthesia Widget: WBC 5.66 K/ul (4.8-10.8) 09/18/23 Hgb 11.5 g/dl (12.0-16.0) L 09/18/23 Hct 35.0 % (37.0-47.0) L 09/18/23 Plt 239 K/uL (130-400) 09/18/23 Na 135 mmol/L (136-145) L 09/18/23 K 4.7 mmol/L (3.5-5.1) 09/18/23 Cl 99 mmol/L (98-107) 09/18/23 CO2 29 mmol/L (21-32) 09/18/23 BUN 19 mg/dl (6-23) 09/18/23 Creat 0.72 mg/dl (0.6-1.2) 09/18/23 Glucose Level 85 mg/dl (70-99(Fasting)) 09/18/23 PT 11.4 Seconds (9.0-12.0) 09/18/23 PTT 32 Seconds (21-31) H 09/18/23 INR 1.0 (0.9-1.1) 09/18/23 Blood Type A Positive 09/18/23 Antibody Screen NEGATIVE 09/18/23 Testing Electrocardiogram Date: 08/14/23 NSR, rate 76 bpm Left axis deviation Chest X-Ray Date: 09/18/23 No acute cardiopulmonary findings. Echocardiogram Date: 01/28/23 EF 60% No LV regional wall motion abnormalities Mild LVH Grade 2 diastolic dysfunction Severely dilated LA Bioprosthetic transcatheter aortic valve replacement without significant stenosis. Moderate, eccentric paravalvular regurgitation Mild mitral valve regurgitation Cardiac Catheterization Date: 12/19/21 70% stenosis noted in the LAD after the second diagonal and a 60-70% stenosis in the mid circumflex 11/11/21 LM -normal caliber, no significant disease LAD -medium caliber, focal 70% stenosis just after takeoff of D2, small distal vessel without significant disease and tapers prior to apex. Medium D2 20 to 30% mid disease. Circumflex -medium caliber, 60-70% mid segment stenosis RCA -dominant, medium caliber, proximal to mid luminal irregularities, remainder of vessel without significant disease. Other Testing Carotid doppler 09/10/23 No hemodynamically significant stenosis in the ICAs
[2023-10-06] MEDS: LR 60ML/HR IV SCH (06:13)
[2023-10-06] MEDS: ACETAMINOPHEN 500 MG TAB PO SCH ×2 (06:13→13:49)
[2023-10-06] MEDS: oxyCODONE HCL 10 MG TABCR (OxyCONTIN) PO SCH (06:13)
[2023-10-06] MEDS: CeleBREX 200 MG CAP PO SCH (06:13)
[2023-10-06] MEDS: LR 500ML BOLUS, THEN 15ML/HR IV SCH (06:13)
[2023-10-06] MEDS: FAMOTIDINE 20 MG TAB PO SCH (06:13)
[2023-10-06] MEDS: METOCLOPRAMIDE HCL 10 MG TABLET PO SCH (06:13)
[2023-10-06] MEDS: traMADol HCL 50 MG TABLET PO SCH (06:13)
[2023-10-06] MEDS: GABAPENTIN 300 MG CAP PO SCH (06:14)
[2023-10-06] MEDS: dexAMETHasone**PF** 10 MG/ML VIAL IV SCH (06:14)
[2023-10-06] MEDS ORDERED: BUPIVACAINE 0.5 % 5 MG/1 ML PF 10ML VIAL ONE (06:21)
[2023-10-06] MEDS ORDERED: ROPIVACAINE 0.5% 5 MG/ML 30 ML VIAL ONE (06:21)
[2023-10-06] MEDS ORDERED: LIDOCAINE 2% 2 ML VIAL/AMP(20MG/ML) INFIL ONE (06:40)
[2023-10-06] MEDS ORDERED: ONDANSETRON INJ 2 MG/ML 2 ML VIAL ONE (06:40)
[2023-10-06] MEDS ORDERED: MIDAZOLAM HCL 1 MG/ML 2ML VIAL ONE (06:40)
[2023-10-06] MEDS ORDERED: PROPOFOL IV EMULSION 10 MG/ML 20 ML VIAL IV ONE ×2 (06:40→10:24)
[2023-10-06] MEDS ORDERED: fentaNYL citrate PF 100 MCG/2 ML VIAL ONE (06:40)
--- NOTE | 2023-10-06 06:43 | History & Physical Bridge Note ---
Date of Service October 06, 2023 History & Physical Bridge Note I have examined the patient, reviewed the History & Physical and in the interval since the performance of the History & Physical I have noted the following changes of clinical significance: no changes noted
[2023-10-06] MEDS: TRANEXAMIC ACID 1,000 MG **IV Pre-op IV SCH (06:51)
[2023-10-06] MEDS: ceFAZolin 2000MG 2,000 MG/15 ML SYR IV SCH ×2 (07:00→15:37)
--- OUTSIDE RECORDS SUMMARY | 2023-10-06 07:01 | External Medical Summary | Continuity of Care Document ---
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 Name Role Phone Jenni Peters Primary Care Physician [phone] [facility] [phone] Date(s): 09/25/23 - 09/25/23 [place] [address] [place] [address] [phone] Encounter Diagnosis Preoperative examination(Discharge Diagnosis) - 09/25/23 Discharge Disposition: Home or Self Care Attending Physician: VERENA Canales, Priya Flores Allergies, Adverse Reactions, Alerts No Known Allergies Immunizations Given and Recorded Vaccine Date Status Refusal Reason SARS COVID Vaccine Unspecified 1 02/04/23 Recorded influenza virus vaccine, inactivated 05/12/22 Mike rded SARS-CoV-2 mRNA (tozinameran 5y-11y) 05/12/22 Mike rded SARS-CoV-2 mRNA (oxmuawuereo-ugyf-jrm) 11/07/21 Re corded SARS-CoV-2 (COVID-19) mRNA BNT-162b2 vax 2 05/16/21 Recorded 1Result Comment: [facility] 2Result Comment: 2022-10-06: Historical information-source unspecified Medications amLODIPine 2.5 mg oral tablet Start: 09/21/23 14:32:00 EST, 1 tab, PO, Daily, Disp# 90 tab, Refills: 3, Pharmacy: [facility] Start Date: 09/21/23 Status: Ordered amoxicillin 500 mg oral capsule Start: 09/15/23 11:53:00 EST, 4 cap, PO, As indicated, Disp# 30 cap, Refills: 1, one hour before dental and other procedures as directed, Pharmacy: [facility] Start Date: 09/15/23 Status: Ordered aspirin 81 mg oral tablet, chewable Start: 10/18/21 9:03:00 EST, 1 tab, PO, Daily Start Date: 10/18/21 Status: Ordered buPROPion 300 mg/24 hours (XL) oral tablet, extended release Start: 09/21/23 14:32:00 EST, 1 tab, PO, Daily, Disp# 90 tab, Refills: 3, Pharmacy: [facility] 1639 Start Date: 09/21/23 Status: Ordered calcium Start: 11/18/21 11:17:00 EDT, calcium, 1,200 = mg, PO, Daily Start Date: 11/18/21 Status: Ordered CoQ10 Start: 08/26/21 15:41:00 EST Start Date: 08/26/21 Status: Ordered D3 Start: 08/26/21 15:41:00 EST Start Date: 08/26/21 Status: Ordered FLUoxetine 10 mg oral capsule Start: 09/21/23 14:32:00 EST, 1 cap, PO, qAM, Disp# 90 cap, Refills: 3, Pharmacy: [facility] 1639 Start Date: 09/21/23 Status: Ordered FLUoxetine 20 mg oral capsule Start: 09/21/23 14:32:00 EST, 1 cap, PO, qAM, Disp# 90 cap, Refills: 3, Pharmacy: [facility] 1639 Start Date: 09/21/23 Status: Ordered folic acid Start: 08/26/21 15:41:00 EST Start Date: 08/26/21 Status: Ordered magnesium malate Start: 11/18/21 11:17:00 EDT, magnesium malate, 1 tab, PO, Daily Start Date: 11/18/21 Status: Ordered pravastatin 10 mg oral tablet Start: 09/21/23 14:32:00 EST, 1 tab, PO, Daily, Disp# 90 tab, Refills: 3, Pharmacy: [facility] 1639 Start Date: 09/21/23 Status: Ordered Synvisc 16 mg/2 mL intra-articular solution Start: 01/12/23 11:16:00 EDT, 16 mg =, intra-articular, q7days, Disp# 12 mL, Refills: 0, 6 syringesfor B/L knees. Please ship to physician's office: [address] [place] [address], Note to Pharmacy: B/L KNEE DJD M17.0, Pharmacy: [facility]... Start Date: 01/12/23 Stop Date: 02/02/23 Status: Ordered Synvisc 16 mg/2 mL intra-articular solution Start: 08/19/23 10:38:00 EST, 16 mg =, intra-articular, q7days, Disp# 6 mL, Refills: 0, 3 syringes for L knee. Please ship to physician's office: [address] [place] [address], Note to Pharmacy: L KNEE DJD M17.12, Pharmacy: [facility] Start Date: 08/19/23 Stop Date: 09/09/23 Status: Ordered turmeric Start: 07/30/23 8:50:00 EST Start Date: 07/30/23 Status: Ordered Tylenol 325 mg oral tablet Start: 12/20/21 13:02:00 EDT, 2 tab, PO, q4h, PRN: pain - mild (1-3) Start Date: 12/20/21 Status: Ordered Vitamin B12 Start: 08/26/21 15:41:00 EST Start Date: 08/26/21 Status: Ordered Mental Status 09/25/23 Barriers to Learning one year None evide nt Mandatory Health Literacy Documentation Yes Health Literacy Communication Barriers N ever Primary Language Vietnamese Problem List Condition Confirmation Course Effective Dates Status H ealth Status Informant Accidental fall Confirmed Active Accidental fall Confirmed Active Anxiety Confirmed Active Aortic stenosis Confirmed Active Osteoarthritis of both knees Confirmed Active Unruptured cerebral aneurysm Confirmed Active Chronic depression Confirmed Active Chronic insomnia Confirmed Active Foot drop Confirmed Active Heart murmur Confirmed Active S/P TAVR (transcatheter aortic valve replacement) Confirmed Active HTN (hypertension) Confirmed Active Laceration of lip Confirmed Active Left knee pain Confirmed Active Myalgia Confirmed Active Body mass index [BMI] 31.0-31.9, adult Confirmed Active Right knee pain Confirmed Active Paresthesia of both hands. Confirmed Active Breast cancer screening by mammogram Confirmed Active Annual physical exam Confirmed Active Degenerative arthritis of knee, bilateral Confirmed Active Right hemiplegia Confirmed Active Severe aortic stenosis Confirmed Active Encounter for removal of sutures Confirmed Active Tobacco user Confirmed Active TBI (traumatic brain injury) Confirmed Active Diagnosis Diagnosis Type Effective Dates Health Status Clinical Service Informant Preoperative examination Discharge Diagnosis 09/25/23 Non-Specified Procedures Procedure Date Related Diagnosis Body Site Status Bone density scan 1 07/31/23 Compl eted Open reduction and internal fixation of fracture 2 01/05/23 Completed Mammogram 3 06/28/22 Completed 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 2Right hip 3No mammographic evidence of malignancy. 1 year screening recommended. 41. Moderate to severe 2 vessel coronary artery disease -70% focal mid LAD after D2. -60-70% mid circumflex. 2. Normal left and right sided filling pressures. 3. Normal pulmonary artery pressures. 4. Presevered cardiac output. Recommendations: Proceed with TAVR evaluation. Medical management of chronic coronary artery disease. 5done for unruptured R MCA aneurysm w/intrasaccular device 6Bilateral saccular aneurysms are seen in the M2 segments. 7brain 8nml, next one in 5yrs. 9Right knee 10Both eyes; different dates 11October 2021 - molars Vital Signs Most recent to oldest [Reference Range]: 1 Patient Weight 68 kg (09/25/23 1:09 PM) Temperature [36.5-37.9 DegC] 36.6 DegC (09/25/23 1:09 PM) Heart Rate 70 bpm (09/25/23 1:09 PM) Respiratory Rate 16 br/min (09/25/23 1:09 PM) Blood Pressure 176/80mmHg (09/25/23 1:09 PM) Cuff Pulse Pressure 96 mmHg (09/25/23 1:09 PM) BP Location # 1 Left Arm, Manual (09/25/23 1:09 PM) Social History Social History Type Response Tobacco Former smoker, Stopp ed age 44 Years. Smoking Status Never smoked cigaret bulmaro Sex Implantable Device List Procedure Provider Procedure Date Device Type Site Unknown Unknown 12/19/21 Non Biological Chest Device Identifier Serial Number Lot or Batch Number Manufacturing Date Expiration Date Distinct Identification Code MRI Safety Implantable Status Assigning Authority Unknown [id number] NA Unknown Unknown Unknown MR Condthomas onal Active Unknown Procedure Provider Procedure Date Device Type Site Unknown Unknown 10/17/21 Non Biological Head Device Identifier Serial Number Lot or Batch Number Manufacturing Date Expiration Date Distinct Identification Code MRI Safety Implantable Status Assigning Authority Unknown NA [id number] Unknown Unknown Unknown MR Conditi onal Active Unknown Patient Care team information Care Team Personnel Name: ANUSHKA Kelley Mayeen R Position: Nurse Pract - CT Surgery Member Role: Lifetime Relationship Address: Address: [address] [place] [id number] [place] Name: MD Peters Amy L Position: Physician - Family Med Member Role: Primary Care Provider Address: Address: [address] [place] [id number] [place] Name: Monique Cuevas Kyle Position: Pharmacist Member Role: Pharmacy - Lifetime Address: Address: [address] [place] [id number] [place] Care Team Related Persons Name: ADRIÁN ZHU Address: [place] Address: home [address] [place] [phone]
--- OUTSIDE RECORDS SUMMARY | 2023-10-06 07:01 | External Medical Summary | Continuity of Care Document ---
Author Name Unknown Organization [facility] [id number] Address [address] [place] [id number] Care Team Providers Care Prison Officer Name Role Phone PetersJenni Primary Care Physician [phone] [id number] Date(s): 09/18/23 - 09/18/23 [facility] [address] [place] [address] 112[address] [facility] [address] [place] [id number] Encounter Diagnosis Right knee DJD(Discharge Diagnosis) - 09/18/23 Discharge Disposition: Home or Self Care Attending Physician: VERENA Nunn, Greta Chen Referring Physician: MD Pricilla, Teofilo Sanchez Allergies, Adverse Reactions, Alerts No Known Allergies Immunizations Given and Recorded Vaccine Date Status Refusal Reason SARS COVID Vaccine Unspecified 1 02/04/23 Recorded influenza virus vaccine, inactivated 05/12/22 Mike rded SARS-CoV-2 mRNA (tozinameran 5y-11y) 05/12/22 Mike rded SARS-CoV-2 mRNA (osfuwneoddv-ldrk-eet) 11/07/21 Re corded SARS-CoV-2 (COVID-19) mRNA BNT-162b2 vax 2 05/16/21 Recorded 1Result Comment: [facility] 2Result Comment: 2022-10-06: Historical information-source unspecified Medications amLODIPine 2.5 mg oral tablet Start: 07/30/23 9:30:00 EST, 1 tab, PO, Daily, Disp# 90 tab, Refills: 3, Pharmacy: [facility] [id number] Start Date: 07/30/23 Status: Ordered amoxicillin 500 mg oral capsule Start: 09/15/23 11:53:00 EST, 4 cap, PO, As indicated, Disp# 30 cap, Refills: 1, one hour before dental and other procedures as directed, Pharmacy: [facility] Start Date: 09/15/23 Status: Ordered aspirin 81 mg oral tablet, chewable Start: 10/18/21 9:03:00 EST, 1 tab, PO, Daily Start Date: 10/18/21 Status: Ordered buPROPion 300 mg/24 hours (XL) oral tablet, extended release Start: 03/23/23 11:43:00 EDT, 1 tab, PO, Daily, Disp# 30 tab, Refills: 6, Pharmacy: [facility] Start Date: 03/23/23 Status: Ordered calcium Start: 11/18/21 11:17:00 EDT, calcium, 1,200 = mg, PO, Daily Start Date: 11/18/21 Status: Ordered CoQ10 Start: 08/26/21 15:41:00 EST Start Date: 08/26/21 Status: Ordered D3 Start: 08/26/21 15:41:00 EST Start Date: 08/26/21 Status: Ordered FLUoxetine 10 mg oral capsule Start: 06/18/23 12:47:00 EST, 1 cap, PO, qAM, Disp# 60 cap, Refills: 6, Pharmacy: [facility] Start Date: 06/18/23 Status: Ordered FLUoxetine 20 mg oral capsule Start: 06/18/23 12:45:00 EST, 1 cap, PO, qAM, Disp# 60 cap, Refills: 6, other Start Date: 06/18/23 Status: Ordered folic acid Start: 08/26/21 15:41:00 EST Start Date: 08/26/21 Status: Ordered magnesium malate Start: 11/18/21 11:17:00 EDT, magnesium malate, 1 tab, PO, Daily Start Date: 11/18/21 Status: Ordered pravastatin 10 mg oral tablet Start: 07/30/23 9:34:00 EST, 1 tab, PO, Daily, Disp# 30 tab, Refills: 6, Pharmacy: [facility] Start Date: 07/30/23 Status: Ordered Synvisc 16 mg/2 mL intra-articular solution Start: 01/12/23 11:16:00 EDT, 16 mg =, intra-articular, q7days, Disp# 12 mL, Refills: 0, 6 syringesfor B/L knees. Please ship to physician's office: [address] [place] [address], Note to Pharmacy: B/L KNEE DJD M17.0, Pharmacy: [facility]... Start Date: 01/12/23 Stop Date: 02/02/23 Status: Ordered Synvisc 16 mg/2 mL intra-articular solution Start: 08/19/23 10:38:00 EST, 16 mg =, intra-articular, q7days, Disp# 6 mL, Refills: 0, 3 syringes for L knee. Please ship to physician's office: [address] [place] [address], Note to Pharmacy: L KNEE DJD M17.12, Pharmacy: [facility]... Start Date: 08/19/23 Stop Date: 09/09/23 Status: Ordered turmeric Start: 07/30/23 8:50:00 EST Start Date: 07/30/23 Status: Ordered Tylenol 325 mg oral tablet Start: 12/20/21 13:02:00 EDT, 2 tab, PO, q4h, PRN: pain - mild (1-3) Start Date: 12/20/21 Status: Ordered Vitamin B12 Start: 08/26/21 15:41:00 EST Start Date: 08/26/21 Status: Ordered Mental Status 09/18/23 Barriers to Learning one year None evide nt Mandatory Health Literacy Documentation Yes Health Literacy Communication Barriers N ever Primary Language Sami Problem List Condition Confirmation Course Effective Dates [...] Diagnosis Diagnosis Type Effective Dates Health Status Cl inical Service Informant Right knee DJD Discharge Diagnosis 09/18/23 Non-Specified Procedures Procedure Date Related Diagnosis Body Site Status Bone density scan 1 07/31/23 Compl eted Open reduction and internal fixation of fracture 2 01/05/23 Completed Mammogram 3 06/28/22 Completed Aortic tri-cusp mechanical h eart valve prosthesis 12/08/21 Completed Cardiac catheterization 4 11/11/21 Completed Repair of aneurysm by endova scular coil embolization 5 10/17/21 Completed MRA head 6 09/03/21 Completed H/O: surgery 7 2021 Completed Colonoscopy 8 08/26/19 Completed Arthroscopy [...] Most recent to oldest [Reference Range]: 1 Height 159 cm (09/18/23 9:43 AM) Patient Weight 66 kg (09/18/23 9:43 AM) Body Mass Index 26.11 kg/m2 (09/18/23 9:43 AM) Temperature [36.5-37.9 DegC] 36.4 DegC *LOW* (09/18/23 9:43 AM) Heart Rate 70 bpm (09/18/23 9:43 AM) Blood Pressure 140/60mmHg (09/18/23 9:43 AM) Cuff Pulse Pressure 80 mmHg (09/18/23 9:43 AM) Social History Social History Type Response Tobacco Former smoker, Stopp ed age 44 Years. Smoking Status Never smoked cigaret bulmaro Sex Implantable Device List Procedure Provider Procedure Date Device Type Site Unknown Unknown 12/19/21 Non Biological Chest Device Identifier Serial Number Lot or Batch Number Manufacturing Date Expiration Date Distinct Identification Code MRI Safety Implantable Status Assigning Authority Unknown [id number] NA Unknown Unknown Unknown Condthomas onal Active Unknown Procedure Provider Procedure Date Device Type Site Unknown Unknown 10/17/21 Non Biological Head Device Identifier Serial Number Lot or Batch Number Manufacturing Date Expiration Date Distinct Identification Code MRI Safety Implantable Status Assigning Authority Unknown NA [id number] Unknown Unknown Unknown MR Conditi onal Active Unknown Pre-OP H & P * VERENA Nunn Jennifer R: PERFORM, MODIFY Event Display: Pre-OP H & P Authored Date: [id number] Name:BETHANY TURNER Patient Number:[id number] :1950 Date of Service:09/18/2023 Chief Complaint pre op R knee History of Present Illness Rob Alonzo presents today fora preoperative history and physical. She is scheduled to have a right total knee arthroplasty with Dr. Pleitez on October 06, 2023. She been having many years of knee pain. Right greater than left. Very she has done cortisone injections as well as viscosupplementation. Her last series of viscosupplementation was in March 2023 which did improve her pains for some time. She states that the pain has returned and that is worse than it ever has been. Is painful at night. Painful at rest. Her pain is increased with going up and down steps. Pain is increased with normal daily activities. She does not use acane or a walker to assist with ambulation. She does have an orthosis on her right foot for chronic foot drop. She would like to proceed with an elective total knee arthroplasty due to her failure of conservative treatment and progressing really worsening symptoms. Pain in the left knee is 3/10 and pain in the right knee is 5/10. Review of Systems Denies any recent cough, cold, fevers, chills or flulike symptoms. She denies any lightheadedness, dizziness, syncopal episodes, headaches, migraines or seizures. Denies any bleeding or clotting disorders or history of DVT or pulmonary embolism. Denies any recent hospitalizations. Denies any history of metal sensitivity, latex allergy or MRSA. Denies any shortness of breath or chest pain. Denies abdominal pain, heartburn, indigestion, nausea, vomiting, diarrhea or constipation. Denies any urinary tract infections. Denies any hearing or vision changes. Denies any dental problems. She did have an abscessed tooth previously but it has been taken care of. She is considering extensive dental work. She has no currentdental issues. No allergies to metal. Nokidney or bladder infections. No strokes, seizures, bleeding problems, blood clots, diabetes, [place], cancer, MRSA, or staph. Physical Exam Vitals & Measurements T:36.4C HR:70(Monitored) BP:140/60 SpO2:97% HT:159cm WT:66kg WT:66.000kg(Dosing) BMI:26.11 Vitals:Last Updated 09/18/23 09:43 Date Temp BP Location Pulse RR SpO2 Pain 09/18/23 36.4 140/60 70 97 09/18/23 0 09/07/23 130/66 Left Arm 68 97 Height and Weight:Last Updated 09/18/23 09:43 Date BMI Wt(kg) Wt(lb) Method Ht(cm) (ft-in) Method 09/18/23 26.11 66 145 Standing Scale 159 5-2 09/07/23 67.9 149 Standing Scale 07/24/23 26.71 65 143 Standing Scale 156 5-1 General:Well-dressed, well-nourished. Normal mood and affect. Alert and oriented x3. HEENT:Head: Atraumatic, normocephalic. Eyes: Extraocular movements intact, pupils equal round and reactive to light, sclera normal. Ears: Ears grossly normal, TMs are clear normal light reflex.Nose: Nares are patent bilaterally. Throat: Oropharynx clear mucous membranes moist good dentition uvula midline. Neck:Supple, no lymphadenopathy, nontender palpation, full range of motion. Cardiac:Regular rate and rhythm, normal S1, S2. No murmurs, rubs or gallops appreciated. Lungs:Clear to auscultation bilaterally. No adventitious sounds. No accessory muscle use. Abdomen:Soft, nontender, nondistended, normal bowel sounds heard in all 4 quadrants. Extremities: Focusing on the patient'sbilaterallower extremities: Ambulates well with cane Foot drop brace on the right foot Varus alignment, right knee Right calf atrophy and steppage type gait 1+DP and1+PT pulses, left Capillary refill less than 2 seconds Sensationintact to light touch Left knee strength 5/5: Knee flexion and extension/ Ankle plantarflexion and dorsiflexion/ ankle inversion and eversion/ Big toe extension Right knee 5/5 strength: Knee flexion and extension/ Ankle and toeplantarflexiondorsiflexion and big toe extension; 3/5 ankle and toe inversion; 0/5 ankle and toe eversion Knee (left)ROM: 0/ 0/ 105 Knee (right) ROM: 0/ 10/ 105 Restricted internal rotation on the right hip but otherwise painless hip ROM Fixed varus deformity of the right knee Hip ROM:Painless, left Active straight leg raiseintact, bilaterally AbsentEffusion, bilaterally Bilateral Ligament exam: ACLIntact,Endpoint intact PCLIntact,Endpoint intact MCLIntact,Endpoint intact LCLIntact,Endpoint intact Positivemedialjoint line tenderness, bilaterally Skin is clear, no previous incisions Diagnostic Results Radiology Images: I obtained and personally interpreted 4 views of both kneeswhich shows severe tricompartmental arthritis mainly medial compartment with varus alignment, right knee worse than left. There is osteopenia. No fractures. Bone spur. Assessment/Plan Right knee DJD Patient is scheduled for right total knee arthroplasty with Dr. Pleitez on October 06, 2023. Risk and complications of the procedure were explained to the patient and include but are not limitedto infection, pain, bleeding, scarring, nerve and blood vessel damage, wound problems, weakness, stiffness, incomplete relief of symptoms, hardware failure, hardware loosening, wear, fracture, tendonor ligament injury, blood clots, embolisms, heart attack, stroke and . All questions were answered and informed consent was obtained by Dr. Pleitez. She will have preadmission testing later today in which she will obtain a preoperative CBC, BMP, PT, PTT, type and screen, chest x-ray, EKG. She will have preoperative clearance from her family physician as well as cardiology. She willhave preoperative approval from her neurologist. Her neurologist has approved Eliquis 2.5 mg p.o.twice daily for 2 to 4 weeks after surgery. She would like to go home with home health and in-home physical therapy. She would like to attend outpatient physical therapy here in our office. Danieloes have a walker and a cane to use after surgery. Postoperative course was discussed. She will be given her pain medication prescription at the time of discharge from the hospital. She was instructed on the usage of the CHG wipes preoperatively. All questions were answered and she knows to call with any further problems, questions or concerns. This chart was completed utilizing [employer] voice recognition software. Grammatical errors, random word insertions, pronoun errors, and in complete sentences are an occasional consequence of the system. Any questions or concerns about the content, text, or information contained within the body of this dictation should be addressed directly to the provider for clarification. Problem List/Past Medical History Ongoing Accidental fall Accidental fall Annual physical exam Anxiety Aortic stenosis Body mass index [BMI] 31.0-31.9, adult Breast cancer screening by mammogram Chronic depression Chronic insomnia Degenerative arthritis of knee, bilateral Encounter for removal of sutures Foot drop Heart murmur HTN (hypertension) Laceration of lip Left knee pain Myalgia Osteoarthritis of both knees Paresthesia of both hands. Right hemiplegia Right knee pain S/P TAVR (transcatheter aortic valve replacement) Severe aortic stenosis TBI (traumatic brain injury) Tobacco user Unruptured cerebral aneurysm Procedure/Surgical History Bone density scan (07/31/2023)Open reduction and internal fixation of fracture (01/05/2023)Mammogram (06/28/2022)Aortic tri-cusp mechanical heart valve prosthesis (12/08/2021)Cardiac catheterization (11/11/2021)Repair of aneurysm by endovascular coil embolization (10/17/2021)MRA head (09/03/2021)H/O: surgery (2021)Colonoscopy (08/26/2019)History of tonsillectomyArthroscopyExtn - Extraction of toothCEIOL - cataract extraction and implantation of intraocularlens Medications Home acetaminophen(Tylenol 325 mg oral tablet), 650 mg= 2 tab, PO, q4h, PRN amLODIPine(amLODIPine 2.5 mg oral tablet), 2.5 mg= 1 tab, PO, Daily, 3 refills amoxicillin(amoxicillin 500 mg oral capsule), 2000 mg= 4 cap, PO, As indicated, 1 refills aspirin(aspirin 81 mg oral tablet, chewable), 81 mg= 1 tab, PO, Daily buPROPion(buPROPion 300 mg/24 hours (XL) oral tablet, extended release), 300 mg= 1 tab, PO, Daily, 6 refills cholecalciferol(D3) cyanocobalamin(Vitamin B12) FLUoxetine(FLUoxetine 10 mg oral capsule), 10 mg= 1 cap, PO, qAM, 6 refills FLUoxetine(FLUoxetine 20 mg oral capsule), 20 mg= 1 cap, PO, qAM, 6 refills folic acid hylan G-F 20(Synvisc 16 mg/2 mL intra-articular solution), 16 mg, intra- articular, q7days hylan G-F 20(Synvisc 16 mg/2 mL intra-articular solution), 16 mg, intra- articular, q7days pravastatin(pravastatin 10 mg oral tablet), 10 mg= 1 tab, PO, Daily, 6 refills turmeric ubiquinone(CoQ10) unknown medication(calcium), 1200 mg, PO, Daily unknown medication(magnesium malate), 1 tab, PO, Daily Allergies NKA Social History Smoking Status Never smoked cigarettes Alcohol Use:Current Type:Beer, Wine, Liquor Frequency:1-2 times per month Sexual Sexually active:Yes Self described orientation:Straight or heterosexual Tobacco Use:Former smoker Stopped at age:44Years Family History Alcoholism: Brother. Cancer of colon: Father and PGM. Cardiovascular disease: Mother and Brother. Carotid artery: Negative: Unknown. Cerebral aneurysm...: Paternal Aunt. Heart attack: MGF. Prostate carcinoma: Brother and PGF. Electronic Signature on File Electronically Reviewed/Signed by: Greta Nunn PA-C Author Signature Dt/Tm:09/18/2023 04:23PM Division of Sports Medicine Electronically Reviewed/Signed by: Teofilo Pleitez MD Cosigner Signature Dt/Tm: 09/19/2023 08:08 AM Division of Sports Medicine [facility] Patient Care team information Care Team Personnel Name: ANUSHKA Kelley Mayeen R Position: Nurse Pract - CT Surgery Member Role: Lifetime Relationship Address: Address: [address] [place] [id number] [place] Name: MD Peters Amy L Position: Physician - Family Med Member Role: Primary Care Provider Address: Address: [address] [place] [address] [address] [place] [address] Name: Monique Cuevas Kyle Position: Pharmacist Member Role: Pharmacy - Lifetime Address: Address: [address] [place], [place] [address] [id number] [place] Care Team Related Persons Name: ADRIÁN ZHU Address: [place] Address: home [address] [place] [address], [place] [id number]
--- OUTSIDE RECORDS SUMMARY | 2023-10-06 07:01 | External Medical Summary | Continuity of Care Document ---
Author Name Unknown Organization [facility] [id number] [address] Address [address] [place], [place] [id number] Care Team Providers Care Customs And Border Protection Inspector Name Role Phone Jenni Peters Primary Care Physician [phone] En[id number] Date(s): 09/28/23 - 09/28/[address] [facility] [address], [address] [place] [address] [phone] Discharge Disposition: Home or Self Care Attending Physician: ANUSHKA Smith Sarah A Referring Physician: ANUSHKA Smith Sarah A Allergies, Adverse Reactions, Alerts No Known Allergies Immunizations Given and Recorded Vaccine Date Status Refusal Reason SARS COVID Vaccine Unspecified 1 02/04/23 Recorded influenza virus vaccine, inactivated 05/12/22 Mike rded SARS-CoV-2 mRNA (tozinameran 5y-11y) 05/12/22 Mike rded SARS-CoV-2 mRNA ([id number]) 11/07/21 Re corded SARS-CoV-2 (COVID-19) mRNA BNT-162b2 vax 2 05/16/21 Recorded 1Result Comment: [facility] 2Result Comment: 2022-10-06: Historical information-source unspecified Medications amLODIPine 2.5 mg oral tablet Start: 09/21/23 14:32:00 EST, 1 tab, PO, Daily, Disp# 90 tab, Refills: 3, [facility] Start Date: 09/21/23 Status: Ordered amoxicillin 500 mg oral capsule Start: 09/15/23 11:53:00 EST, 4 cap, PO, As indicated, Disp# 30 cap, Refills: 1, one hour before dental and other procedures as directed, Pharmacy: [facility] Start Date: 09/15/23 Status: Ordered aspirin 81 mg oral tablet, chewable Start: 10/18/21 9:03:00 EST, 1 tab, PO, Daily Start Date: 10/18/21 Status: Ordered buPROPion 300 mg/24 hours (XL) oral tablet, extended release Start: 09/21/23 14:32:00 EST, 1 tab, PO, Daily, Disp# 90 tab, Refills: 3, Pharmacy: [facility] Start Date: 09/21/23 Status: Ordered calcium Start: 11/18/21 11:17:00 EDT, calcium, 1,200 = mg, PO, Daily Start Date: 11/18/21 Status: Ordered CoQ10 Start: 08/26/21 15:41:00 EST Start Date: 08/26/21 Status: Ordered D3 Start: 08/26/21 15:41:00 EST Start Date: 08/26/21 Status: Ordered FLUoxetine 10 mg oral capsule Start: 09/21/23 14:32:00 EST, 1 cap, PO, qAM, Disp# 90 cap, Refills: 3, Pharmacy: [facility] Start Date: 09/21/23 Status: Ordered FLUoxetine 20 mg oral capsule Start: 09/21/23 14:32:00 EST, 1 cap, PO, qAM, Disp# 90 cap, Refills: 3, Pharmacy: [facility] Start Date: 09/21/23 Status: Ordered folic acid Start: 08/26/21 15:41:00 EST Start Date: 08/26/21 Status: Ordered magnesium malate Start: 11/18/21 11:17:00 EDT, magnesium malate, 1 tab, PO, Daily Start Date: 11/18/21 Status: Ordered pravastatin 10 mg oral tablet Start: 09/21/23 14:32:00 EST, 1 tab, PO, Daily, Disp# 90 tab, Refills: 3, Pharmacy: [facility] Start Date: 09/21/23 Status: Ordered Synvisc 16 mg/2 mL intra-articular solution Start: 01/12/23 11:16:00 EDT, 16 mg =, intra-articular, q7days, Disp# 12 mL, Refills: 0, 6 syringesfor B/L knees. Please ship to physician's office: [address] [place] [address], Note to Pharmacy: B/L KNEE DJD M17.0, Pharmacy: C... Start Date: 01/12/23 Stop Date: 02/02/23 Status: Ordered Synvisc 16 mg/2 mL intra-articular solution Start: 08/19/23 10:38:00 EST, 16 mg =, intra-articular, q7days, Disp# 6 mL, Refills: 0, 3 syringes for L knee. Please ship to physician's office: [address] [place] [address], Note to Pharmacy: L KNEE DJD M17.12, Pharmacy: [facility]... Start Date: 08/19/23 Stop Date: 09/09/23 Status: Ordered turmeric Start: 07/30/23 8:50:00 EST Start Date: 07/30/23 Status: Ordered Tylenol 325 mg oral tablet Start: 12/20/21 13:02:00 EDT, 2 tab, PO, q4h, PRN: pain - mild (1-3) Start Date: 12/20/21 Status: Ordered Vitamin B12 Start: 08/26/21 15:41:00 EST Start Date: 08/26/21 Status: Ordered Problem List Condition Confirmation Course Effective Dates Status H ealth Status Informant Anxiety Confirmed Active Aortic stenosis Confirmed Active [...] Breast cancer screening by mammogram Confirmed Active Degenerative arthritis of knee, bilateral Confirmed Active Right hemiplegia Confirmed Active Severe aortic stenosis Confirmed Active Tobacco user Confirmed Active Procedures Procedure Date Related Diagnosis Body Site Status Bone density scan 1 07/31/23 Compl eted Open reduction and internal fixation of fracture 2 01/05/23 Completed Mammogram 3 06/28/22 Completed TAVR - transcatheter aortic valve replacement 12/19/21 Completed Cardiac catheterization 4 11/11/21 Completed Repair [...] 5yrs. 9Right knee 10Both eyes; different dates 2021 - Results Radiology Reports * Exam Date Time Procedure Performing Provider Status 09/28/23 12:27 PM Echo Stress, Pharmacologic ThursdayRonald; Final Notes: (Echo Stress, Pharmacologic) Reason For Exam: angina Echo Stress, Pharmacologic Report Signatures Stress ECG Finalized by Dr. Tyrese Shaw MD on 09/29/2023 05:02 PM Echo Finalized by Dr. Tyrese Shaw MD on 09/29/2023 05:02 PM [place] Act 112: No-No further action needed Summary 1. Negative Pharmacologic Stress ECG and Echocardiogram for ischemia at 99% MPHR. 2. No complaints of chest pain or dyspnea. Supervising: Gabriella Santos RN BMI: 27.91 Patient Info Name: BETHANY TURNER Age: 73 years : 1950 Gender: Female Ht: 155 cm Wt: 67 kg BSA: 1.72 m2 Heart Rhythm: Sinus Rhythm Technical Quality: Good Exam Date: 09/28/2023 11:44 AM Exam Location: [facility] Patient Status: Outpatient Staff Ordering Physician: Santa Smith Rice Drier Operator: Cheyenne Wen RDCS, RVT Attending Physician: Santa Smith Study Info CPT 43137 - Indications I209 - Angina pectoris, unspecified Procedure(s) * A Dobutamine stress echocardiogram is performed. Exam Type: Pharm Stress 4 ECG Summary Negative exercise ECG for ischemia. Protocol: Dobutamine Rest HR: 73 bpm Peak HR: 144 bpm Rest Sys BP: 148 mmHg Peak Sys BP: 184 mmHg Max Pred HR: 146 bpm % Max Pred HR: 99 % Target HR: 124 bpm Max RPP: 26,496 bpm*mmHg Target HR Summary: Hemodynamic response to dobutamine and atropine BP Response: Normal blood pressure response Termination Reason: Target HR > 85% MPHM Cardiac Symptoms: None Total Time: 16 min : 29 sec Rest Amador BP: 82 mmHg Peak Amador BP: 60 mmHg Stress ECG Details Total Atropine Dose: 0.5 mg Peak Dobutamine Dose: 40 g/kg Resting ECG Normal sinus rhythm. Left axis deviation. Stress ECG No abnormal ST/T wave changes with exercise. Arrhythmias Occasional PVCs. Stress Echo Findings Left Ventricle Normal LV wall motion response to pharmacologic stress. Left ventricle becomes smaller and more vigorous in response to pharmacologic stress. Improved global left ventricular function in response to pharmacologic stress. Left Ventricle Normal left ventricular size and systolic function with no regional wall motion abnormalities. Ejection fraction as calculated by Biplane Simpsons method is 60%. Mild left ventricular hypertrophy. Ventricles Name Value Normal LV Dimensions 2D/MM IVS Diastolic Thickness (2D) 0.8 cm 0.6-0.9 LVID Diastole (2D) 4.6 cm 3.3-5.1 LVIW Diastolic Thickness (2D) 1.0 cm 0.6-0.9 LVID Systole (2D) 3.0 cm 2.2-3.5 LV Fractional Shortening/Ejection Fraction 2D/MM LV Fractional Shortening (2D) 34 % 27-45 LV Diastolic Volume (4C MOD) 85 ml LV Diastolic Volume (2C MOD) 86 ml LV Diastolic Volume (BP MOD) 85 ml 46-106 LV Diastolic Volume Index (BP MOD) 49.60 ml/m2 29.00-61.00 LV Systolic Volume (BP MOD) 35 ml 14-42 LV Systolic Volume Index (BP MOD) 20.38 ml/m2 8.00-24.00 LV EF (BP MOD) 59 % 58-69 LV SV (BP MOD) 50.23 ml Final Signed by:DO Shaw Jason D Signed (Electronic Signature):09/28/2023 11:44 Vital Signs Most recent to oldest [Reference Range]: 1 Patient Weight 65.6 kg (09/28/23 11:06 AM) Social History Social History Type Response Tobacco Former smoker, Stopp ed age 44 Years. Smoking Status Never smoked cigaret bulmaro Sex Implantable Device List Procedure Provider Procedure Date Device Type Site Unknown Unknown 12/19/21 Non Biological Chest Device Identifier Serial Number Lot or Batch Number Manufacturing Date Expiration Date Distinct Identification Code MRI Safety Implantable Status Assigning Authority Unknown [id number] NA Unknown Unknown Unknown MR Vickey peralta Active Unknown Procedure Provider Procedure Date Device Type Site Unknown Unknown 10/17/21 Non Biological Head Device Identifier Serial Number Lot or Batch Number Manufacturing Date Expiration Date Distinct Identification Code MRI Safety Implantable Status Assigning Authority Unknown NA [id number] Unknown Unknown Unknown MR Hurd onal Active Unknown Patient Care team information Care Team Personnel Name: ANUSHKA Kelley Mayeen R Position: Nurse Pract - CT Surgery Member Role: Lifetime Relationship Address: Address: [address] [place] [address] [address] [place] [address] [place] Name: MD Peters Amy L Position: Physician - Family Med Member Role: Primary Care Provider Address: Address: [address] [place] [address] [address] [place] [address] [place] Name: Monique Cuevas Kyle Position: Pharmacist Member Role: Pharmacy - Lifetime Address: Address: [address] [place] [id number] [place] Care Team Related Persons Name: ADRIÁN ZHU Address: [place] Address: home [address] [place] [address], [place] [id number]
[2023-10-06] MEDS ORDERED: ONDANSETRON INJ 2 MG/ML 2 ML VIAL IV PRN ×2 (07:13→10:44)
[2023-10-06] MEDS ORDERED: fentaNYL citrate PF 100 MCG/2 ML VIAL IV PRN (07:13)
[2023-10-06] MEDS ORDERED: ATROPINE SULFATE 0.1 MG/ML 10ML SYR IV PRN (07:13)
[2023-10-06] MEDS ORDERED: PROMETHAZINE HCL 6.25 MG in SODIUM CHLORIDE 0.9% 50 ML IV PRN (07:13)
[2023-10-06] MEDS ORDERED: HYDROmorphone INJ 2 MG/ML SYR/VIAL IV PRN (07:13)
[2023-10-06] MEDS ORDERED: ePHEDrine sulfate 50 MG/ML AMP IV PRN (07:13)
[2023-10-06] MEDS: ORTHO JOINT ANESTHETIC ONE (07:45)
[2023-10-06] MEDS: ROPIV 0.5% 246mg, Ketorolac 30mg, EPINEPHrine 0.5mg in NSS INFIL SCH (07:46)
[2023-10-06] MEDS: VANCOMYCIN HCL 1000MG/20ML VIAL ONE (07:46)
[2023-10-06] MEDS ORDERED: LABETALOL HCL IV 5 MG/ML 20ML IV ONE (07:56)
[2023-10-06] MEDS ORDERED: PHENYLEPHRINE 100MCG/ML 10ML SYR IV ONE (09:56)
[2023-10-06] MEDS ORDERED: METOCLOPRAMIDE HCL INJ 5 MG/ML 2 ML VIAL IV PRN (10:44)
[2023-10-06] MEDS ORDERED: diphenhydrAMINE 50 MG/ML VIAL IV PRN (10:44)
[2023-10-06] MEDS ORDERED: NALOXONE HCL 0.4 MG/1 ML VIAL/CARP IV PRN (10:44)
[2023-10-06] MEDS ORDERED: ALUMINUM/MAGNESIUM SUSP 30 ML UDC PO PRN (10:44)
[2023-10-06] MEDS ORDERED: MAGNESIUM HYDROXIDE SUSP 30 ML UDC PO PRN (10:44)
[2023-10-06] MEDS ORDERED: bisacodyL 10 MG SUPP PR PRN (10:44)
--- NOTE | 2023-10-06 10:44 | Operative Report ---
Post Operative Report Pre & Post Diagnosis Operation Date: 10/06/23 07:00 Pre-Op Diagnosis: Right Knee Osteoarthritis Post-Op Diagnosis: Right Knee Osteoarthritis I identified the patient and participated in the time-out.: Yes Procedure Operation Date: 10/06/23 07:00 Actual Procedures p Right Total Knee Arthroplasty(Right) - Teofilo Pleitez MD Surgeon Teofilo Pleitez MD Manager Heart Failure Jorge Ott PA-Sean Estimated Blood Loss 50 Findings Consistent with Post-Op Diagnosis Specimens Right knee bone and soft tissue Description of Procedure I was present during the entire case assisting with positioning, prepping, draping, wound retraction, wound closure, and dressing application. No fellow present. Please see Dr. Pleitez procedure note for specifics of the case. I attest to the content of the Intraoperative Record and any orders documented therein. Any exceptions are noted below.
[2023-10-06] MEDS ORDERED: DOCUSATE SODIUM/SENNA 50/8.6MG TAB PO PRN (10:48)
--- NOTE | 2023-10-06 10:52 | Operative Report ---
Post Operative Report Pre & Post Diagnosis Operation Date: 10/06/23 07:00 Pre-Op Diagnosis: Right Knee Osteoarthritis Post-Op Diagnosis: Right Knee Osteoarthritis I identified the patient and participated in the time-out.: Yes Procedure Operation Date: 10/06/23 07:00 Actual Procedures p Right Total Knee Arthroplasty(Right) - Teofilo Pleitez MD Surgeon Teofilo Pleitez MD Java J2Ee Architect Jorge Ott PA-C Estimated Blood Loss 50 Findings Consistent with Post-Op Diagnosis Specimens Resected bone and soft tissue right knee Anesthesia Type MAC Spinal Regional Complications none Disposition Accompanied Patient To Recovery: No Disposition: Recovery Room Indications Anastasiya is 73 years old. She has severe right knee arthritis refractory to nonsurgical treatment. She wishes to have this addressed with surgery. She has been worked up preoperatively and cleared by medicine and neurosurgery. She has a chronic right foot drop and right lower extremity weakness. Description of Procedure Informed consent. Patient identified. She identified the operative site as the right knee. I marked with my initials. Preoperative surgical timeout performed. Preop dose of IV antibiotics given. She was taken to the operating room positioned supine on the operating room table. The anesthetic was administered. A tourniquet was applied to the right thigh with a bump under the right hip and a padded post under the right calf. The leg was prepped and draped in usual sterile fashion. DVT prophylaxis with mechanical devices intraoperatively. Postop early mobility mechanical devices and Eliquis. The exam under anesthesia revealed a fixed varus deformity with range of motion 0/12/100. TXA given. Limb exsanguinated with the Esmarch. Tourniquet plated 250 mmHg and later to 300 mmHg. A midline incision was made followed by medial parapatellar arthrotomy. An extensile medial release was performed. The soft tissue on the anterior aspect of the distal femur was resected. There was significant retropatellar scarring and difficulty subluxating the patella. The retropatellar fat pad was resected. I then removed substantial marginal osteophytes from the patella. I performed a minimal lateral release. Releasing this synovial layer and then part of the deeper layer of the lateral retinaculum without completely doing a lateral release. This improved the ability to subluxate the patella better. I then went ahead and flex the knee partly. The patella obscured access to the lateral compartment of the knee. Notch osteophytes were resected and then the ACL which was largely deficient was resected. The PCL was released. The posterior medial corner of the knee was released. All visible marginal osteophytes throughout the knee tibia and femur medial and lateral as well as patella were resected. Osteophytes under the MCL were later resected. At this point I still was not able to adequately expose the knee. I elected to proceed with cutting the patella. The patella measured 23 mm in thickness. I selected a 32 or 35 mm patella patella. The cutting guide was applied for the [employer] system and set to preserve 14 mm of bone. I carefully aligned the paddle and made the cut. The cut was slightly inclined medial to lateral within her bone medial and thicker bone lateral. The patella was then sized to a 32. The patella and next was able to be dislocated much more easier and held out of the way under minimal tension and the knee exposed. I drilled a senior software qa engineer hole just in front of the lateral tibial spine followed by insertion of the intramedullary alignment hi. The 3 degree posterior slope tibial cutting block was applied aligned to the tibial tubercle and pinned into place. It was set to resect 8 mm off of the lateral side corresponding to a 2 mm cut medially. The extra medullary alignment hi was utilized to confirm alignment and slope with the knee in full extension. Bisecting the ankle joint and intersecting the second ray. The cut was then made and sized to a 4 tibia possibly 3. Definitely not a 5. Lateral margin of the tibia was exposed and flatness of the cut was ensured. Brand Advocate hole was drilled into the distal femur just above the PCL origin. The intramedullary alignment hi was introduced. The distal femoral cutting block was applied. 11 mm thick cut because of flexion contracture on the right 6 d egrees valgus based upon preoperative templating. The guide was pinned in place. The distal cut was made and sized to a for for 5 mm thick. It was symmetric and nearly straight. The distal femoral sizing guide was applied and sized with 3. The guide was pinned in the place and this was set at 3 degree external rotation. The drill holes were made and then the size 3 anterior down cutting block was applied. The collateral ligaments were protected. The cuts were made anterior posterior and chamfers. Osteophytes under the collateral ligaments were removed. The box cutting guide was applied and lateralized. Pinned in place and the box cut was made. Osteophytes in the back of the knee medial and lateral were removed. The femoral component was applied and fit well. The tibia was exposed and prepared with the keel and punch. The tray was aligned to the tibial tubercle. Trialing with a 5 spacer revealed at this time full extension stable in full extension 1+ LCL laxity mid position and trace LCL laxity at 90. Attention was turned to the patella with a 32 paddle was aligned with the patella and as needed position and the knee slightly flexed. The patella was centralized for coverage and the lug holes were drilled. Patellar tracking was fine with no hands technique. The surgical exposure was difficult and required more time. I then went ahead and let the tourniquet down. The tibial canal was plugged and Ortho joint mix was injected into the back of the knee. Tourniquet time at this point was approximately 108 minutes. The tourniquet was let down for 10 minutes. Spacer block inserted and the knee was reexsanguinated and tourniquet reinflated to 300 mmHg. Lug holes were treated previously drilled. 2 bags of Simplex P cement were mixed and while in a doughy state the components were cemented into place femur tibia and patella. The knee was held in full extension with a patellar clamp and a trial spacer until the cemented hardened. Tourniquet was then let down and meticulous hemostasis was performed. The remainder of the Ortho joint mix was injected. The back the knee was inspected for cement which was removed as encountered and trialing again was performed with the 5 and then the 6 mm insert. The 6 gave. Extension with no varus valgus laxity. There was elimination of trace MCL mid position laxity that was present with the 5 spacer. 1+ LCL laxity and symmetric stability at 90 degrees of flexion. The final polyethylene was inserted irrigation performed. Extensor mechanism closed with #2 FiberWire above the equator the patella and running interrupted #1 Vicryl below. The skin was closed in layers with 0 and 2-0 Vicryl followed by maury on the skin with the edges everted. Leg was cleaned with wet and dry sponges and a soft roll dressing was applied Xeroform 4 x 4's ABD soft wrap and wrap. She was sent to the floor with a knee immobilizer. She will have a incisional wound VAC applied tomorrow. Resected bone and soft tissue were sent for specimen. Counts were correct and blood loss is estimated to be 50 cc. Knee was dry at the time of closure. Counts were correct and no complications. Patellar thickness was 22. [place] assisted flexion with extensor mechanism closed was 110 degrees. Components inserted were the J&J attune knee a size 3 regular with posterior stabilized right femur. A 32 3 peg medial offset patella a size 4 x 6 mm thick polyethylene and a size 4 mobile-bearing keeled tibial tray. Rehab according to standard total knee protocol. Weight-bear as tolerated. Eliquis to begin morning after surgery. We will also supply her with an AFO because of her foot drop. I attest to the content of the Intraoperative Record and any orders documented therein. Any exceptions are noted below.
--- NOTE | 2023-10-06 11:44 | XRay Report ---
XR knee RT 1 or 2V routine CLINICAL HISTORY: Surgical Post Op TECHNIQUE: 2 views of the right knee were obtained. Comparison: Comparison is made to leg length radiographs 09/18/2023 FINDINGS: Patient is status post total knee arthroplasty with expected postsurgical changes including soft tiss ue swelling and subcutaneous emphysema. No periarticular lucency or hardware fracture is seen. IMPRESSION: Expected postoperative appearance status post placement of total knee arthroplasty. ACT 112: Negative or not required by law. Electronically signed by: Ottoniel Carreon M.D. 10/06/2023 11:43 AM
[2023-10-06] MEDS: SODIUM CHLORIDE 0.9% 1,000 ML IV SCH (12:49)
--- NOTE | 2023-10-06 13:17 | Anesthesiology Progress Note ---
Date of Service October 06, 2023 Anesthesia Post Procedure Vital Signs Vital Signs: Temp Pulse Pulse Resp BP Pulse Ox O2 Del Method 10/06/23 12:47 36.4 C L 78 17 149/71 H 99 Room Air 10/06/23 12:15 36.4 C L 76 17 132/73 97 Room Air 10/06/23 11:45 36.4 C L 74 17 147/74 H 98 Room Air 10/06/23 11:20 36.4 C L 79 16 146/68 H 95 Room Air 10/06/23 11:10 79 16 136/74 96 Room Air 10/06/23 11:00 78 17 150/69 H 95 Room Air 10/06/23 10:50 81 17 160/65 H 97 Room Air 10/06/23 10:43 36.1 C L 86 17 175/98 H 98 Room Air 10/06/23 05:44 36.5 C 72 18 152/74 H 97 Room Air Pain Intensity Right Knee: Pain Intensity: 0 Transfer of Care Handoff Completed per policy Notes Mental Status: alert / awake / arousable and participated in evaluation Nausea / Vomiting: adequately controlled Pain: adequately controlled Airway Patency, RR, SpO2: stable & adequate BP & HR: stable & adequate Hydration State: stable & adequate Neuraxial Anesthesia: was administered and sensory block is resolving Anesthetic Complications: no major complications apparent and Pt Satisfied with anesthetic care
[2023-10-06] MEDS: KETOROLAC TROMETHAMINE 15 MG/ML VIAL IV SCH (13:49)
[2023-10-06] MEDS: TRANEXAMIC ACID / 0.7% NACL 1,000 MG/100 ML BAG IV SCH (16:55)
--- NOTE | 2023-10-06 18:52 | Orthopedic Progress Note ---
Date of Service October 06, 2023 Assessment & Plan (1) Knee joint replacement status: Plan: Stable postop. X-rays show good positioning without complication. Surgical findings are reviewed and discussed. Postoperative plan pain management PT and OT use of the brace and AFO are discussed. The leg is elevated and iced. Eliquis for DVT prophylaxis. Admission and Anticipated Discharge Date Admission Date: October 06, 2023 Subjective No problems postop. No difficulty breathing. Pain is well-controlled. Physical Exam Physical Exam: She has no strength with eversion. She cannot extend her toes. She has 3+ to 4- out of 5 inversion strength. 4 out of 5 dorsiflexion plantarflexion strength. These are all chronic findings. Sensation is intact her foot is warm with good capillary refill less than 2 seconds DP pulse is trace dopplerable although the nurse can feel it plainly and the posterior tib pulse has a strong Doppler. Dressing clean and dry. Results & Data Vital Signs (Past 12 Hours) Vital Signs Temp Pulse Pulse Resp BP Pulse Ox O2 Del Method 10/06/23 15:00 36.9 C 81 16 115/70 97 Room Air 10/06/23 13:48 36.4 C L 83 18 137/75 99 Room Air 10/06/23 12:47 36.4 C L 78 17 149/71 H 99 Room Air 10/06/23 12:15 36.4 C L 76 17 132/73 97 Room Air 10/06/23 11:45 36.4 C L 74 17 147/74 H 98 Room Air 10/06/23 11:20 36.4 C L 79 16 146/68 H 95 Room Air 10/06/23 11:10 79 16 136/74 96 Room Air 10/06/23 11:00 78 17 150/69 H 95 Room Air 10/06/23 10:50 81 17 160/65 H 97 Room Air 10/06/23 10:43 36.1 C L 86 17 175/98 H 98 Room Air
[2023-10-06] MEDS: DOCUSATE SODIUM 100 MG CAP PO SCH (20:35)
[2023-10-06] MEDS: SENNA 8.6 MG TAB PO SCH (20:35)
[2023-10-06] MEDS: oxyCODONE HCL IR 5 MG TAB (IMMEDIATE RELEASE) PO PRN (21:57)
[2023-10-07 06:20] LABS: Hematocrit (blood only) 26.4 % (37.0-47.0); Hemoglobin 8.5 g/dl (12.0-16.0); Mean Corpuscular Hemoglobin 30.2 pg (25.0-34.0); Mean Corpuscular Hgb Conc 32.2 g/dL (32.0-36.0); Mean Platelet Volume 10.8 fL (9.4-12.4); Platelet Count 161 K/uL (130-400); RDW Coefficient of Variation 13.2 % (11.5-14.5); RDW Standard Deviation 45.2 fL (36.4-46.3); Red Blood Count 2.81 M/uL (4.20-5.40); White Blood Count 8.15 K/ul (4.8-10.8)
[2023-10-07 06:36] LABS: BUN Creatinine Ratio 29.1 (10-20); Calcium 8.5 mg/dl (8.6-10.3); Creatinine Clr Calc Pharmacy 56.1 ml/min; Est GFR (African American) 85.5 ml/min; Est GFR (Non-African American) 73.7 ml/min; Potassium 3.8 mmol/L (3.5-5.1)
[2023-10-07] MEDS: CALCIUM CARBONATE 1250MG TAB PO SCH (07:41)
[2023-10-07] MEDS: FLUoxetine HCL 20 MG CAP PO SCH (07:41)
[2023-10-07] MEDS: buPROPion XL 150 MG TABCR PO SCH (07:41)
[2023-10-07] MEDS: ASPIRIN 81 MG ECTAB PO SCH (07:41)
[2023-10-07] MEDS: APIXABAN 2.5 MG TAB PO SCH (07:41)
[2023-10-07] MEDS: MULTIVITAMIN TAB PO SCH (07:42)
[2023-10-07] MEDS: CHOLECALCIFEROL 25 MCG (1000 UNITS) TAB PO SCH (07:42)
[2023-10-07] MEDS: dexAMETHasone 4 MG TAB PO SCH (07:42)
[2023-10-07] MEDS: amLODIPine BESYLATE 5 MG TAB PO SCH (07:42)
[2023-10-07] MEDS: PRAVASTATIN SOD 10 MG TAB PO SCH (07:42)
[2023-10-07] MEDS: FOLIC ACID 400 MCG TAB PO SCH (07:42)
[2023-10-07] MEDS: HYDROmorphone INJ 0.5 MG/0.5 ML SYR IV PRN (08:38)
[2023-10-07] MEDS ORDERED: NON-FORMULARY MEDICATION (Turmeric 400 mg Capsule) PO SCH (09:00)
[2023-10-07] MEDS ORDERED: [UNRECOGNIZED DRUG - OTHER] PO SCH (09:00)
[2023-10-07] MEDS ORDERED: NON-FORMULARY MEDICATION (Vitamin B12-Folic Acid 1-0.8 mg Tablet) PO SCH (09:00)
[2023-10-07] MEDS ORDERED: MAGNESIUM PO SCH (09:00)
[2023-10-07] MEDS ORDERED: NON-FORMULARY MEDICATION (Coenzyme Q10 [Coq-10] 100 mg Capsule) PO SCH (09:00)
--- NOTE | 2023-10-07 09:24 | Orthopedic Progress Note ---
Date of Service October 07, 2023 Assessment & Plan (1) Knee joint replacement status: Plan: POD1 s/p total knee arthroplasty, right, with Dr Pleitez WBAT with walker and AFO brace PT/OT Diet - regular Frequently ice and elevate with blankets stacked under ankle DVT prophylaxis: Eliquis 2.5mg 2 weeks with 1 refill, TEDS x 3 weeks, foot pumps while in hospital Pain control: Tylenol 1000mg q 8hrs, tramadol for moderate pain, oxycodone 5- 10mg q4-6 hrs for severe pain, Dilaudid 0.5mg IV for breakthrough pain Prevena will be placed this morning and left on for 1 week. HH will change in 1 week Discharge pending proper pain control and PT eval, likely will stay another night. She will be discharged with HH x 2 weeks DC brace Follow up as scheduled with [facility] in 2 weeks Admission and Anticipated Discharge Date Admission Date: October 06, 2023 Subjective Pt was seen and examined bedside. POD #1 s/p RTKA with Dr Pleitez. Pt was admitted last night for observation. No major events over night. She is having 7/10 pain. Vitals are stable. Labs unremarkable. X-rays show normal post operative changed. They are tolerating PO intake and voiding adequate amounts. Will see how she does with PT. Pt denies F/C, N/V/D, SOB, CP. Review of Systems Review of Systems: per HPI Physical Exam Physical Exam: General: Pt laying in hospital bed AA&O, in NAD, calm and cooperative during exam Lower Extremity: Dressing in tact and minimally saturated. Incisions clean, dry and with minimal drainage and no surrounding erythema, warmth or purulent drainage. She does have weakness at her baseline in this foot. Pt has EHL and tib ant function in tact, she has strength at her baseline with DF/PF. She is weaker with eversion and inversion. She is unable to raise her 2-5digits. She can raise her big toe. SLR in tact. Calf supple and non tender. NVI with sensation to light touch distally and DP/TP pulses found with doppler. Results & Data Vital Signs (Past 12 Hours) Vital Signs Temp Pulse Resp BP Pulse Ox O2 Del Method O2 Flow Rate 10/07/23 07:37 36.9 C 80 16 135/76 96 Room Air 10/07/23 03:54 37.1 C 75 16 127/66 97 Room Air 10/06/23 23:49 37 C 82 18 119/57 L 96 Room Air 2 Laboratory Results 10/07/23 Range/Units 05:46 WBC 8.15 (4.8-10.8) K/ul RBC 2.81 L (4.20-5.40) M/uL Hgb 8.5 L (12.0-16.0) g/dl Hct 26.4 L (37.0-47.0) % MCV 94.0 (80.0-100.0) fL MCH 30.2 (25.0-34.0) pg MCHC 32.2 (32.0-36.0) g/dL RDW Std Deviation 45.2 (36.4-46.3) fL RDW Coeff of Loren 13.2 (11.5-14.5) % Plt Count 161 (130-400) K/uL MPV 10.8 (9.4-12.4) fL Sodium 139 (136-145) mmol/L Potassium 3.8 (3.5-5.1) mmol/L Chloride 108 H (98-107) mmol/L Carbon Dioxide 25 (21-32) mmol/L Anion Gap 6 (3-11) BUN 23 (6-23) mg/dl Creatinine 0.79 (0.6-1.2) mg/dl Est Cr Clr Drug Dosing 56.1 ml/min Est GFR ( Amer) 85.5 ml/min Est GFR (Non-Af Amer) 73.7 ml/min BUN/Creatinine Ratio 29.1 H (10-20) Glucose 115 H (70-99(Fasting)) mg/dl Calcium 8.5 L (8.6-10.3) mg/dl
[2023-10-08 07:08] LABS: Basophils # (auto) 0.01 K/uL (0.00-0.20); Basophils % (auto) 0.2 %; Eosinophils # (auto) 0.08 K/uL (0.00-0.50); Eosinophils % (auto) 1.2 %; Hematocrit (blood only) 24.8 % (37.0-47.0); Immature Granulocytes # (auto) 0.03 K/uL (0.01-0.20); Immature Granulocytes % (auto) 0.5 %; Lymphocytes # (auto) 1.21 K/uL (1.20-3.40); Lymphocytes % (auto) 18.7 %; Mean Corpuscular Hemoglobin 30.3 pg (25.0-34.0); Mean Corpuscular Hgb Conc 32.3 g/dL (32.0-36.0); Mean Corpuscular Volume 93.9 fL (80.0-100.0); Mean Platelet Volume 11.3 fL (9.4-12.4); Monocytes # (auto) 0.81 K/uL (0.11-0.59); Monocytes % (auto) 12.5 %; Neutrophils # (auto) 4.33 K/uL (1.40-6.50); Neutrophils % (auto) 66.9 %; Platelet Count 160 K/uL (130-400); RDW Coefficient of Variation 13.4 % (11.5-14.5); RDW Standard Deviation 45.9 fL (36.4-46.3); Red Blood Count 2.64 M/uL (4.20-5.40); White Blood Count 6.47 K/ul (4.8-10.8)
--- NOTE | 2023-10-08 17:50 | Orthopedic Progress Note ---
Date of Service October 08, 2023 Assessment & Plan (1) Knee joint replacement status: Plan: The patient was educated regarding today's findings. Conservative care measures were discussed. I removed her knee immobilizer and placed a new ice pack on her knee. The patient stated it felt comfortable and improved her pain. Importance of icing and elevating was discussed at length with her. She should use the knee immobilizer when out of bed. She will participate in PT and OT today, and then can be discharged to home if all goes well. Written discharge instructions were provided. Prescriptions for oxycodone, tramadol, and Eliquis were sent to her pharmacy. Continue weightbearing as tolerated with her walker. Follow-up in the office as scheduled in 2 weeks. Admission and Anticipated Discharge Date Admission Date: October 06, 2023 Subjective This 73-year-old female is seen this morning in her room. She is postop day 2 from right total knee arthroplasty. She states she is having pain at this time. She did receive some oral pain medication this morning. She states she did not sleep very well overnight secondary to discomfort. She currently denies any chest pain, shortness of breath, nausea, or vomiting. She is unsure about being discharged today. Physical Exam Physical Exam: General: Well-developed, well-nourished, elderly female, in no acute distress. Obvious discomfort. Sitting in bed. Alert and oriented. Skin: Warm dry with good turgor. No rashes. Expected postoperative effusion in her right knee. Wound VAC is in place on the right knee. No significant ecchymosis. Musculoskeletal: The patient has intact motor function of her ankle and toes. She has limited knee range of motion secondary to pain at this time. She has difficulty with a straight leg raise. Neurologic: Gross sensation is intact across the right leg by soft touch. Peripheral pulses are 2+. Results & Data Vital Signs (Past 12 Hours) Vital Signs Temp Pulse Pulse Resp BP Pulse Ox O2 Del Method 10/08/23 14:28 37.5 C 73 16 105/65 99 Room Air 10/08/23 10:55 94 10/08/23 07:43 36.8 C 72 16 107/65 96 Room Air
--- NOTE | 2023-10-08 18:05 | Orthopedic Progress Note ---
Date of Service October 08, 2023 Assessment & Plan (1) Knee joint replacement status: Plan: I do not see any evidence of complication. She is having pain. The medicines help. Spoke with her nurse. She has been taking the oxycodone. She has the Dilaudid available as well as Tylenol and Ultram. She should try to alternate the medications and let the nurse know as soon as she starts to feel some pain to get some medicine. Also take medicine before PT. She will be assessed in the morning and if appropriate we can discharge her. Continue Eliquis. Continue AFO. Admission and Anticipated Discharge Date Admission Date: October 06, 2023 Cyril Langford was scheduled to be discharged earlier today however she has continued pain. She also had an episode of feeling clammy with physical therapy this morning but did better this afternoon. Her main issue is significant pain. She has pain in her thigh and into the knee area. She denies any tingling or numbness. The pain medicine does help her. She denies chest pains shortness of breath lightheadedness or dizziness Physical Exam Physical Exam: Her foot is warm with capillary refill less than 2 seconds. Very brisk. I think today I can feel a trace DP and PT pulse. She has chronic weakness of her foot but cannot dorsiflex her ankle with 4 out of 5 strength and plantarflex her foot with 4 out of 5 strength. Swelling is actually very minimal. There are skin wrinkles present in the lower leg. There is tenderness in the upper third of the tibia around the knee especially medially and then into the mid and upper thigh where the tourniquet was. All compartments are soft without significant swelling. There is no bruising noted. The incisional wound VAC is in place and functioning properly. She is able to do a straight leg raise and can slightly bend her knee. When I came in to see her she had a pillow underneath her knee. I talked to her about the straightening that went on during surgery and how it is important to maintain that by not putting a pillow under the knee but under her calf. There is no pain with passive movement of her toes or ankle Results & Data Vital Signs (Past 12 Hours) Vital Signs Temp Pulse Pulse Resp BP Pulse Ox O2 Del Method 10/08/23 14:28 37.5 C 73 16 105/65 99 Room Air 10/08/23 10:55 94 10/08/23 07:43 36.8 C 72 16 107/65 96 Room Air
[2023-10-09 06:44] LABS: Basophils # (auto) 0.03 K/uL (0.00-0.20); Basophils % (auto) 0.5 %; Eosinophils # (auto) 0.25 K/uL (0.00-0.50); Eosinophils % (auto) 3.9 %; Hematocrit (blood only) 24.4 % (37.0-47.0); Hemoglobin 7.9 g/dl (12.0-16.0); Immature Granulocytes # (auto) 0.02 K/uL (0.01-0.20); Immature Granulocytes % (auto) 0.3 %; Lymphocytes # (auto) 1.46 K/uL (1.20-3.40); Lymphocytes % (auto) 22.7 %; Mean Corpuscular Hemoglobin 30.7 pg (25.0-34.0); Mean Corpuscular Hgb Conc 32.4 g/dL (32.0-36.0); Mean Corpuscular Volume 94.9 fL (80.0-100.0); Monocytes # (auto) 0.68 K/uL (0.11-0.59); Monocytes % (auto) 10.6 %; Neutrophils # (auto) 3.98 K/uL (1.40-6.50); Platelet Count 167 K/uL (130-400); RDW Coefficient of Variation 13.4 % (11.5-14.5); RDW Standard Deviation 46.5 fL (36.4-46.3); Red Blood Count 2.57 M/uL (4.20-5.40); White Blood Count 6.42 K/ul (4.8-10.8)
[2023-10-09 07:08] LABS: RBC Morphology Unremarkable
--- NOTE | 2023-10-09 11:02 | Orthopedic Progress Note ---
Date of Service October 09, 2023 Assessment & Plan (1) Knee joint replacement status: Plan: Patient is postop day #3 status post a right total knee arthroplasty She continues to be limited with her functional activities due to pain Discussed with Dr. Pleitez. Verified with nurse she has been getting Tylenol and oxycodone. Tramadol has not been ordered previously. I did order this for patient with the goal of controlling her pain with oral medication. Dr Laura mejia did recommend if her pain is not controlled with oral medication may provide with IV pain medication that has been ordered. If her pain continues to be not managed with these measures he would consider an acute pain management consultation. Recommend continue with using ice over the right knee x 20 minutes throughout the day as needed Patient's H&H is stable and she is asymptomatic we will continue to monitor She will continue with the Prevena dressing in place for 1 week. When discharged, home health will change at that time. She will continue to participate in physical therapy utilizing walker with ambulating and ASO She will continue with Eliquis for DVT prophylaxis. Once pain is controlled and deemed safe by physical therapy she will be discharged home with oral medications, oxycodone and tramadol and with home health services. Her medications had been sent 10/08/23 per Oswald Gilmore. She has a follow-up appointment scheduled in our office on October 18 at [address] Pleitez will keep this appointment as is at this time. We will continue to monitor her response to the pain regimen as well as her functional activities with physical therapy. Admission and Anticipated Discharge Date Admission Date: October 06, 2023 Subjective Patient is a 73-year-old female who is a known patient to Dr. Pleitez. She is status postop day #3 status post a right total knee arthroplasty on 10/06. She was seen bedside this a.m. Patient is seen sitting upright in bed she appears to be alert and oriented and acting an appropriate manner answering questions appropriately. She states that she continues to have pain in her knee and is concerned about being discharged because of her pain. Per nursing she requested IV medication and was last given a dose of Dilaudid at 1 AM. She is due for her oral medication now. She is not complaining of any dizziness, shortness of breath chest pain, fever or chills. She states she has pain that seems to be uncontrolled with anytime she moves the knee. She reports she was able to tolerate physical therapy better yesterday afternoon however it was still extremely painful. She denies any calf pain. She states she has been able to eat without any nausea or vomiting. She rates her pain as 8/10 now. Review of Systems Review of Systems: Please refer to HPI Physical Exam Physical Exam: General: Patient is alert and oriented x 3 no acute distress Integumentary/musculoskeletal:. The dressing has been placed and is suction down working properly. Negative for any erythema surrounding this area. She does have tenderness over the knee joint which is to be anticipated. She is able to tolerate the knee extended. She is able to tolerate knee flexion to approximately 25 degrees and complains of pain. She is unable to do a straight leg raise. Her ankle dorsiflexion and plantarflexion is weak compared to the left this is baseline for patient. Her calf is soft and nontender. Dorsal pedis pulses 1+. Her sensation is intact in the right lower extremity. Results & Data Vital Signs (Past 12 Hours) Vital Signs Temp Pulse Resp BP Pulse Ox O2 Del Method 10/09/23 08:10 37 C 75 16 99/62 L 95 Room Air Laboratory Results 10/09/23 Range/Units 06:04 WBC 6.42 (4.8-10.8) K/ul RBC 2.57 L (4.20-5.40) M/uL Hgb 7.9 L (12.0-16.0) g/dl Hct 24.4 L (37.0-47.0) % MCV 94.9 (80.0-100.0) fL MCH 30.7 (25.0-34.0) pg MCHC 32.4 (32.0-36.0) g/dL RDW Std Deviation 46.5 H (36.4-46.3) fL RDW Coeff of Loren 13.4 (11.5-14.5) % Plt Count 167 (130-400) K/uL MPV 11.0 (9.4-12.4) fL Immature Gran % (Auto) 0.3 % Neut % (Auto) 62.0 % Lymph % (Auto) 22.7 % [place] % (Auto) 10.6 % Eos % (Auto) 3.9 % Baso % (Auto) 0.5 % Neut # (Auto) 3.98 (1.40-6.50) K/uL Lymph # (Auto) 1.46 (1.20-3.40) K/uL [place] # (Auto) 0.68 H (0.11-0.59) K/uL Eos # (Auto) 0.25 (0.00-0.50) K/uL Baso # (Auto) 0.03 (0.00-0.20) K/uL Immature Gran # (Auto) 0.02 (0.01-0.20) K/uL RBC Morphology Unremarkable
[2023-10-09] MEDS: traMADol HCL 50 MG TABLET PO PRN (15:16)
--- NOTE | 2023-10-09 17:43 | Orthopedic Progress Note ---
Date of Service October 09, 2023 Assessment & Plan (1) Knee joint replacement status: Plan: Her blood pressures have not been elevated and she has not been tachycardic. Her Dilaudid was held earlier today because of her low blood pressure. None of her medications have been removed and in fact we added Ultram today. Reviewed management strategy with her alternating the oxycodone and Ultram and using the Dilaudid for breakthrough pain. I encouraged her to avoid the Dilaudid if if able. Will await placement authorization. I do not see any evidence of complication. She does not have compartment syndrome. I think her pain is accountable by the surgical procedure and tourniquet. Working with elevation knee extension and range of motion is appropriate. For now she will wear her knee immobilizer as she had difficulty doing a leg raise today which I think is secondary to pain. She does have acute blood loss anemia. Her hemoglobin is relatively stable at about 8. She denies any chest pain lightheadedness shortness of breath. Monitor for now. (2) Acute blood loss anemia: Admission and Anticipated Discharge Date Admission Date: October 09, 2023 Subjective Reports continued pain. Worse than yesterday. She was able to get up with PT and sat in the chair for a while. She reports her whole whole leg aches. She denies tingling or numbness. She has not had sciatica. Has spoken to PT and case management. Would like to go to rehab. Physical Exam Physical Exam: She localizes discomfort to the mid thigh where the tourniquet was. Also medial knee and upper leg. Her compartments of the thigh and calf are soft. She is wearing the AFO and the knee immobilizer. She has probably a 20 degree flexion contracture which corrects to -10 and she is able to bend to about 40 degrees with pain. There is not significant intra-articular fluid and there is not notable bruising. Skin wrinkles are in place on the lower leg. She has no pain with passive movement of her toes. Swelling is mild. Results & Data Vital Signs (Past 12 Hours) Vital Signs Temp Pulse Pulse Resp BP Pulse Ox O2 Del Method 10/09/23 14:32 36.8 C 81 18 108/64 95 Room Air 10/09/23 12:26 97 10/09/23 12:03 37.1 C 73 16 110/68 98 Room Air 10/09/23 08:10 37 C 75 16 99/62 L 95 Room Air Laboratory Results Laboratory Results WBC 6.42 K/ul (4.8-10.8) 10/09/23 06:04 RBC 2.57 M/uL (4.20-5.40) L 10/09/23 06:04 Hgb 7.9 g/dl (12.0-16.0) L 10/09/23 06:04 Hct 24.4 % (37.0-47.0) L 10/09/23 06:04 MCV 94.9 fL (80.0-100.0) 10/09/23 06:04 MCH 30.7 pg (25.0-34.0) 10/09/23 06:04 MCHC 32.4 g/dL (32.0-36.0) 10/09/23 06:04 RDW Std Deviation 46.5 fL (36.4-46.3) H 10/09/23 06:04 RDW Coeff of Loren 13.4 % (11.5-14.5) 10/09/23 06:04 Plt Count 167 K/uL (130-400) 10/09/23 06:04 MPV 11.0 fL (9.4-12.4) 10/09/23 06:04 Immature Gran % (Auto) 0.3 % 10/09/23 06:04 Neut % (Auto) 62.0 % 10/09/23 06:04 Lymph % (Auto) 22.7 % 10/09/23 06:04 [place] % (Auto) 10.6 % 10/09/23 06:04 Eos % (Auto) 3.9 % 10/09/23 06:04 Baso % (Auto) 0.5 % 10/09/23 06:04 Neut # (Auto) 3.98 K/uL (1.40-6.50) 10/09/23 06:04 Lymph # (Auto) 1.46 K/uL (1.20-3.40) 10/09/23 06:04 [place] # (Auto) 0.68 K/uL (0.11-0.59) H 10/09/23 06:04 Eos # (Auto) 0.25 K/uL (0.00-0.50) 10/09/23 06:04 Baso # (Auto) 0.03 K/uL (0.00-0.20) 10/09/23 06:04 Immature Gran # (Auto) 0.02 K/uL (0.01-0.20) 10/09/23 06:04 RBC Morphology Unremarkable 10/09/23 06:04 Sodium 139 mmol/L (136-145) 10/07/23 05:46 Potassium 3.8 mmol/L (3.5-5.1) 10/07/23 05:46 Chloride 108 mmol/L (98-107) H 10/07/23 05:46 Carbon Dioxide 25 mmol/L (21-32) 10/07/23 05:46 Anion Gap 6 (3-11) 10/07/23 05:46 BUN 23 mg/dl (6-23) 10/07/23 05:46 Creatinine 0.79 mg/dl (0.6-1.2) 10/07/23 05:46 Est Cr Clr Drug Dosing 56.1 ml/min 10/07/23 05:46 Est GFR ( Amer) 85.5 ml/min 10/07/23 05:46 Est GFR (Non-Af Amer) 73.7 ml/min 10/07/23 05:46 BUN/Creatinine Ratio 29.1 (10-20) H 10/07/23 05:46 Glucose 115 mg/dl (70-99(Fasting)) H 10/07/23 05:46 Calcium 8.5 mg/dl (8.6-10.3) L 10/07/23 05:46 Impressions Knee X-Ray 10/06/23 10:44 XR knee RT 1 or 2V routine CLINICAL HISTORY: Surgical Post Op TECHNIQUE: 2 views of the right knee were obtained. Comparison: Comparison is made to leg length radiographs 09/18/2023 FINDINGS: Patient is status post total knee arthroplasty with expected postsurgical changes including soft tissue swelling and subcutaneous emphysema. No periarticular lucency or hardware fracture is seen. IMPRESSION: Expected postoperative appearance status post placement of total knee arthroplasty. ACT 112: Negative or not required by law. Electronically signed by: Ottoniel Carreon M.D. 10/06/2023 11:43 AM
[2023-10-10 06:27] LABS: Basophils # (auto) 0.03 K/uL (0.00-0.20); Basophils % (auto) 0.5 %; Eosinophils # (auto) 0.29 K/uL (0.00-0.50); Eosinophils % (auto) 5.2 %; Hematocrit (blood only) 24.4 % (37.0-47.0); Hemoglobin 8.1 g/dl (12.0-16.0); Immature Granulocytes # (auto) 0.02 K/uL (0.01-0.20); Immature Granulocytes % (auto) 0.4 %; Lymphocytes # (auto) 1.37 K/uL (1.20-3.40); Lymphocytes % (auto) 24.4 %; Mean Corpuscular Hemoglobin 30.8 pg (25.0-34.0); Mean Corpuscular Hgb Conc 33.2 g/dL (32.0-36.0); Mean Corpuscular Volume 92.8 fL (80.0-100.0); Mean Platelet Volume 10.8 fL (9.4-12.4); Monocytes # (auto) 0.53 K/uL (0.11-0.59); Monocytes % (auto) 9.4 %; Neutrophils # (auto) 3.37 K/uL (1.40-6.50); Neutrophils % (auto) 60.1 %; Platelet Count 200 K/uL (130-400); RDW Coefficient of Variation 13.3 % (11.5-14.5); RDW Standard Deviation 45.6 fL (36.4-46.3); Red Blood Count 2.63 M/uL (4.20-5.40); White Blood Count 5.61 K/ul (4.8-10.8)
--- NOTE | 2023-10-10 11:08 | Orthopedic Progress Note ---
Date of Service October 10, 2023 Assessment & Plan (1) Acute blood loss anemia: (2) Knee joint replacement status: Plan: Hopefully turning the corner. Will monitor today. Hopefully get another round of PT tomorrow. Hopefully pain continues to improve. Her hemoglobin is steady at 8. Her vitals are stable. She has not had any count of chest pain shortness of breath lightheaded or dizziness. I instructed her to monitor. Continue Eliquis. Admission and Anticipated Discharge Date Admission Date: October 09, 2023 Subjective Feeling better. Up with PT. Overall less pain. Pain was an average 6 out of 10 yesterday and is now down to a 4 out of 10. She managed overnight with oxycodone Tylenol and tramadol. Physical Exam Physical Exam: She is sitting in a chair with her knee brace on. Her leg is warm without significant swelling. Wound VAC in place. Results & Data Vital Signs (Past 12 Hours) Vital Signs Temp Pulse Resp BP Pulse Ox O2 Del Method 10/10/23 07:10 37.2 C 76 16 104/63 96 Room Air Laboratory Results Laboratory Results WBC 5.61 K/ul (4.8-10.8) 10/10/23 05:52 RBC 2.63 M/uL (4.20-5.40) L 10/10/23 05:52 Hgb 8.1 g/dl (12.0-16.0) L 10/10/23 05:52 Hct 24.4 % (37.0-47.0) L 10/10/23 05:52 MCV 92.8 fL (80.0-100.0) 10/10/23 05:52 MCH 30.8 pg (25.0-34.0) 10/10/23 05:52 MCHC 33.2 g/dL (32.0-36.0) 10/10/23 05:52 RDW Std Deviation 45.6 fL (36.4-46.3) 10/10/23 05:52 RDW Coeff of Loren 13.3 % (11.5-14.5) 10/10/23 05:52 Plt Count 200 K/uL (130-400) 10/10/23 05:52 MPV 10.8 fL (9.4-12.4) 10/10/23 05:52 Immature Gran % (Auto) 0.4 % 10/10/23 05:52 Neut % (Auto) 60.1 % 10/10/23 05:52 Lymph % (Auto) 24.4 % 10/10/23 05:52 [place] % (Auto) 9.4 % 10/10/23 05:52 Eos % (Auto) 5.2 % 10/10/23 05:52 Baso % (Auto) 0.5 % 10/10/23 05:52 Neut # (Auto) 3.37 K/uL (1.40-6.50) 10/10/23 05:52 Lymph # (Auto) 1.37 K/uL (1.20-3.40) 10/10/23 05:52 [place] # (Auto) 0.53 K/uL (0.11-0.59) 10/10/23 05:52 Eos # (Auto) 0.29 K/uL (0.00-0.50) 10/10/23 05:52 Baso # (Auto) 0.03 K/uL (0.00-0.20) 10/10/23 05:52 Immature Gran # (Auto) 0.02 K/uL (0.01-0.20) 10/10/23 05:52 RBC Morphology Unremarkable 10/09/23 06:04 Sodium 139 mmol/L (136-145) 10/07/23 05:46 Potassium 3.8 mmol/L (3.5-5.1) 10/07/23 05:46 Chloride 108 mmol/L (98-107) H 10/07/23 05:46 Carbon Dioxide 25 mmol/L (21-32) 10/07/23 05:46 Anion Gap 6 (3-11) 10/07/23 05:46 BUN 23 mg/dl (6-23) 10/07/23 05:46 Creatinine 0.79 mg/dl (0.6-1.2) 10/07/23 05:46 Est Cr Clr Drug Dosing 56.1 ml/min 10/07/23 05:46 Est GFR ( Amer) 85.5 ml/min 10/07/23 05:46 Est GFR (Non-Af Amer) 73.7 ml/min 10/07/23 05:46 BUN/Creatinine Ratio 29.1 (10-20) H 10/07/23 05:46 Glucose 115 mg/dl (70-99(Fasting)) H 10/07/23 05:46 Calcium 8.5 mg/dl (8.6-10.3) L 10/07/23 05:46 Impressions Knee X-Ray 10/06/23 10:44 XR knee RT 1 or 2V routine CLINICAL HISTORY: Surgical Post Op TECHNIQUE: 2 views of the right knee were obtained. Comparison: Comparison is made to leg length radiographs 09/18/2023 FINDINGS: Patient is status post total knee arthroplasty with expected postsurgical changes including soft tissue swelling and subcutaneous emphysema. No periarticu lar lucency or hardware fracture is seen. IMPRESSION: Expected postoperative appearance status post placement of total knee arthroplasty. ACT 112: Negative or not required by law. Electronically signed by: Ottoniel Carreon M.D. 10/06/2023 11:43 AM
--- NOTE | 2023-10-11 09:10 | Orthopedic Progress Note ---
Date of Service October 11, 2023 Assessment & Plan (1) Acute blood loss anemia: (2) Knee joint replacement status: Plan: Improving. She will have PT this morning. If she tolerates well then we will go ahead and discharge home with home health services. Instructions have been reviewed in terms of what to watch out for what meds to take her activities therapy and follow-up. Admission and Anticipated Discharge Date Admission Date: October 09, 2023 Subjective Pain is managed with oral medications. She did not sleep well. Nurse reports that she has good mobility to the bathroom and in the hallway. She has not been lightheaded or dizzy. Physical Exam Physical Exam: Her leg looks benign. Wound VAC in place. No redness or significant swelling. She can move her ankle up and down. Results & Data Vital Signs (Past 12 Hours) Vital Signs Temp Pulse Resp BP Pulse Ox O2 Del Method 10/11/23 08:04 80 120/62 10/11/23 07:41 37.0 C 78 16 92/55 L 96 Room Air 10/10/23 21:34 37.2 C 76 16 123/71 98 Room Air
--- NOTE | 2023-10-13 13:45 | Discharge Summary ---
Date of Service October 13, 2023 Admission HPI Per Admitting Provider History of Present Illness Anastasiya Chapin is a 73 year old Female who presents today for a preoperative history and physical. She is scheduled to have a right total knee arthroplasty with Dr. Pleitez on October 06, 2023. She been having many years of knee pain. Right greater than left. Very she has done cortisone injections as well as viscosupplementation. Her last series of viscosupplementation was in March 2023 which did improve her pains for some time. She states that the pain has returned and that is worse than it ever has been. Is painful at night. Painful at rest. Her pain is increased with going up and down steps. Pain is increased with normal daily activities. She does not use a cane or a walker to assist with ambulation. She does have an orthosis on her right foot for chronic foot drop. She would like to proceed with an elective total knee arthroplasty due to her failure of conservative treatment and progressing really worsening symptoms. Pain in the left knee is 3/10 and pain in the right knee is 5/10. Admission Exam Per Admitting Provider Physical Exam Vitals & Measurements T: 36.4 C HR: 70 (Monitored) BP: 140/60 SpO2: 97% HT: 159 cm WT: 66 kg WT: 66.000 kg (Dosing) BMI: 26.11 Vitals: Last Updated 09/18/23 09:43 Date Temp BP Location Pulse RR SpO2 Pain 09/18/23 36.4 140/60 70 97 09/18/23 0 09/07/23 130/66 Left Arm 68 97 Height and Weight: Last Updated 09/18/23 09:43 Date BMI Wt(kg) Wt(lb) Method Ht(cm) (ft-in) Method 09/18/23 26.11 66 145 Standing Scale 159 5-2 09/07/23 67.9 149 Standing Scale 07/24/23 26.71 65 143 Standing Scale 156 5-1 General: Well-dressed, well-nourished. Normal mood and affect. Alert and oriented x3. HEENT: Head: Atraumatic, normocephalic. Eyes: Extraocular movements intact, pupils equal round and reactive to light, sclera normal. Ears: Ears grossly normal, TMs are clear normal light reflex. Nose: Nares are patent bilaterally. Throat: Oropharynx clear mucous membranes moist good dentition uvula midline. Neck: Supple, no lymphadenopathy, nontender palpation, full range of motion. Cardiac: Regular rate and rhythm, normal S1, S2. No murmurs, rubs or gallops appreciated. Lungs: Clear to auscultation bilaterally. No adventitious sounds. No accessory muscle use. Abdomen: Soft, nontender, nondistended, normal bowel sounds heard in all 4 quadrants. Extremities: Focusing on the patient's bilateral lower extremities: Ambulates well with cane Foot drop brace on the right foot Varus alignment, right knee Right calf atrophy and steppage type gait 1+ DP and 1+ PT pulses, left Capillary refill less than 2 seconds Sensation intact to light touch Left knee strength 5/5: Knee flexion and extension/ Ankle plantarflexion and dorsiflexion/ ankle inversion and eversion/ Big toe extension Right knee 5/5 strength: Knee flexion and extension/ Ankle and toe plantarflexion dorsiflexion and big toe extension; 3/5 ankle and toe inversion; 0/5 ankle and toe eversion Knee (left) ROM: 0/ 0/ 105 Knee (right) ROM: 0/ 10/ 105 Restricted internal rotation on the right hip but otherwise painless hip ROM Fixed varus deformity of the right knee Hip ROM: Painless, left Active straight leg raise intact, bilaterally Absent Effusion, bilaterally Bilateral Ligament exam: ACL Intact, Endpoint intact PCL Intact, Endpoint intact MCL Intact, Endpoint intact LCL Intact, Endpoint intact Positive medial joint line tenderness, bilaterally Skin is clear, no previous incisions Principal Diagnosis Right knee osteoarthritis Discharge Exam General: Patient is alert and oriented x 3 no acute distress Integumentary/musculoskeletal:. The dressing has been placed and is suction down working properly. Negative for any erythema surrounding this area. She does have tenderness over the knee joint which is to be anticipated. She is able to tolerate the knee extended. She is able to tolerate knee flexion to approximately 25 degrees and complains of pain. She is unable to do a straight leg raise. Her ankle dorsiflexion and plantarflexion is weak compared to the left this is baseline for patient. Her calf is soft and nontender. Dorsal pedis pulses 1+. Her sensation is intact in the right lower extremity. Discharge Data Allergies Allergy/AdvReac Type Severity Reaction Status Date / Time No Known Allergies Allergy Verified 10/06/23 05:39 Procedures Performed Operation Date: 10/06/23 07:00 Actual Procedures p Right Total Knee Arthroplasty(Right) - Teofilo Pleitez MD Ordered Studies 10/06/23 05:00 US - OR guided needle placemen Routine Hospital Course (1) Acute blood loss anemia: (2) Knee joint replacement status: Patient required extended stay following her total knee arthroplasty (~6 days) for pain control, functional limitations due to her surgery and chronic drop foot. She was eventially discharged home with in home PT on Thursday (10/11/23). Status post a right total knee arthroplasty Recommend continue with using ice over the right knee x 20 minutes throughout the day as needed Patient's H&H is stable and she is asymptomatic we will continue to monitor She will continue with the Prevena dressing in place for 1 week. When discharged, home health will change at that time. She will continue to participate in physical therapy utilizing walker with ambulating and ASO She will continue with Eliquis for DVT prophylaxis. Once pain is controlled and deemed safe by physical therapy she will be discharged home with oral medications, oxycodone and tramadol and with home health services. Her medications had been sent 10/08/23 per Oswald Gilmore. She has a follow-up appointment scheduled in our office on October 18 at [address] Pleitez will keep this appointment as is at this time. We will continue to monitor her response to the pain regimen as well as her functional activities with physical therapy. Total Time Total Time Spent Total Time Spent (In Minutes): ~5 hours Discharge Plan Discharge Items Patient Disposition: Home - Home Health Services Reason For Visit: Right Knee Osteoarthritis Discharge Diagnosis: Right Knee s/p total knee replacement Condition on Discharge: Good Activity: As commented below Lifting: None Bathing: May shower/bathe in 3 days Sexual Activity: Wait until after follow-up appointment Exercise/Sports: Wait until after follow-up appointment Driving/Machine Use: No driving until cleared by Dr. Pleitez Weightbearing: Right weightbearing Weightbearing Comment: as tolerated with walker and immobilizer Non-emergency contact: Surgeon Call non-emergency contact if: you have any medication questions, your pain is not controlled, your temperature is above 101.5, your wound has increased drainage and your wound pain has increased Follow-up/Referrals: Jenni Peters MD [Primary Care Provider] - Teofilo Pleitez MD [Surgeon] - 10/19/23 1:00 pm Diet: Regular and Heart Healthy Addtl Attending Provider Instructions: New Medicine: * You will likely be taking one or more of these medications: 1. Eliquis 2.5 mg - You will be on Eliquis twice daily for 2 weeks with one refill, for a total of 4 weeks. It is okay to continue your 81mg Aspirin 2. Tylenol 1000mg every 8 hours 3. Tramadol - take as prescribed, every 4 hours as needed for moderate pain 4. Oxycodone - Take as prescribed every four to six hours for severe/breakthrough pain 5. Colace & Senokot - Take to prevent constipation which can be caused by narcotics. These can be bought [id number] at the pharmacy * The most common side effects of pain medicine and iron are nausea and constipation. If nausea or constipation is too much of a problem or if you have any questions about your new medicines or doses, call [facility] at . We will try to help you manage these issues. "VERY IMPORTANT TO READ AND REVIEW" Blood Clots and Blood Thinning Medicine: * You are given Eliquis during the immediate post-operative period to lessen the risk of blood clots forming in your legs and/or lungs. * The prescription is for 2.5 mg tablets. This to be take twice daily Physical Therapy: * Do your physical therapy at home. These are the exercises you learned while in the hospital (quad sets, leg raises, calf pumps, gluteal squeezes, knee bending, and heel props.) You should do these exercises 3-4 times per day. * You will either go home with Home Therapy and nursing. You should do rehab with the therapist 2-3 times per week. You should do therapy on your own daily. * You may bear full weight on your leg with crutches or walker unless otherwise advised. Home Exercise: * You were shown a series of exercises (heel props, heel slides, etc.) in the hospital. Do these exercises three to four times each day including the exercises you were shown in physical therapy. Walking: * You may be up for short periods of time. Standing and walking for 1-2 hours at a time is usually okay. You should not stand or walk for excessive periods of time as this may Cause increased pain and swelling. SELF CARE INSTRUCTIONS AFTER TOTAL KNEE REPLACEMENT A. You may need to continue a physical therapy program after discharge from the hospital. There are several options available to you. Your doctor will assist you in selecting the best one for you. 1. An out-patient facility 2 to 3 times a week for therapy or home therapy. 2. Continue working on all exercises taught to you in the hospital. Your goals should be to increase bending of your knee to 90 degrees and beyond and to fully straighten your knee. B. Your therapist will notify you when you are able to progress from a walker to a cane. C. Wear TEDS as much as possible.~ They may be removed at night for laundering. D. Do not place a pillow behind your knee when resting. A pillow at your ankle is okay. E. Ice your knee 15-20 minutes every 2-3 hours and elevate it above the level of your heart. F. You may shower tomorrow, cover the incision/bandage with a bag or plastic wrap. Do not submerge until the wound is completely healed (approximately 2 weeks). G. Anyone who is touching your surgical incision area should wash their hands and wear gloves. VERY IMPORTANT TO READ AND REVIEW a. There are a few signs you need to watch for after you are home. Call [facility] if you notice any of the followin. Increased severe knee pain. Some pain is expected especially when you exercise. 2. Increased swelling in your leg or knee; pain or swelling of the calf muscle in either lower leg. 3. Any fluid drainage from the incision. 4. Shortness of breath or chest pain. 5. Numbness and tingling in the surgical extremity B. Please call [facility] at if you have any concerns or questions about your operation or recovery. The doctor or his nurse will return your call promptly. C. Do not have any elective dental work or other elective procedures done for 6 weeks after your knee replacement. When you have any invasive procedure (dental cleaning, extraction, colonoscopy etc) performed, you will need to take antibiotics to prevent infection from developing in your artificial joint. Tell your other health care providers you have an artificial joint. My office will supply you with further information and the antibiotics. Call your doctor if: * Temperature above 101 degrees F. * Pain not relieved by pain medicine ordered. * Increased drainage or redness from incision. * Notify your doctor with any questions or concerns. Follow-up Visit: You will follow-up with Dr. Pleitez 10-14 days after surgery. The office number is . Avoid all tobacco products. If you need help to stop smoking, call [facility] at . This is a free call. Pending Studies at Discharge: No Stand-Alone Forms: My [facility], Smoking Cessation Medications and DC Order Prescriptions: New Eliquis 2.5 mg tablet 2.5 mg PO BID Qty: 30 1RF oxycodone 5 mg tablet 10 mg PO Q6H PRN (Reason: pain) Qty: 18 0RF Rx Instructions: max of 6 per day initial script tramadol 50 mg tablet 50 mg PO Q6H PRN (Reason: pain) Qty: 16 0RF Rx Instructions: initial script Continued bupropion HCl [Wellbutrin XL] 150 mg Tablet Extended Release 24 Hr 150 mg PO QAM folic acid 400 mcg Tablet 0.4 mg PO QAM cholecalciferol (vitamin D3) [Vitamin D3] 25 mcg (1,000 unit) Capsule 25 mcg PO QAM calcium carbonate 500 mg calcium (1,250 mg) Tablet 500 mg PO QAM fluoxetine 20 mg capsule 20 mg PO QAM Rx Instructions: TOTAL DOSE 30 MG--TAKES WITH 10 MG CAP. vitamin [id number] acid 1-0.8 mg Tablet 1 tab PO QAM magnesium malate, chelate 125 mg magnesium Capsule 125 mg PO QAM amlodipine 2.5 mg Tablet 2.5 mg PO QAM pravastatin 10 mg Tablet 10 mg PO QAM turmeric 400 mg Capsule 400 mg PO QAM sennosides-docusate sodium [Senokot-S] 8.6-50 mg tablet 2 tab PO HS PRN (Reason: Constipation) aspirin 81 mg tablet,delayed release (DR/EC) 81 mg PO DAILY amoxicillin 500 mg capsule 2,000 mg PO DIRECTED PRN (Reason: dental procedure) Discontinued coenzyme Q10 [CoQ-10] 100 mg Capsule 100 mg PO QAM Discharge Orders: Discharge Order (Routine); Ordered 10/11/23 Ordered By: Teofilo Pleitez Admission Data Admit Date/Time: 10/09/23 12:17 Attending Provider: Teofilo Pleitez Admit Provider: Teofilo Pleitez Primary Care Provider: Jenni Peters Other Providers: [facility],Home Healthcare Other Interventions: Discharge Summary Assessment (RN) Last Done: 10/11/23 11:10
== END 2023-10-11 12:41 | disposition home health service (06) | DRG 470 ==
LOC: ASU 05:12 → 3E 05:12
DX: I25.10 Atherosclerotic heart disease of native coronary artery without angina pectoris; M21.371 Foot drop, right foot; Z79.899 Other long term (current) drug therapy; G81.91 Hemiplegia, unspecified affecting right dominant side; G89.18 Other acute postprocedural pain; F32.9 Major depressive disorder, single episode, unspecified; F41.9 Anxiety disorder, unspecified; M17.11 Unilateral primary osteoarthritis, right knee; S06.9XAS Unspecified intracranial injury with loss of consciousness status unknown, sequela; D62 Acute posthemorrhagic anemia; Z95.2 Presence of prosthetic heart valve; Z79.82 Long term (current) use of aspirin; Z87.891 Personal history of nicotine dependence; I10 Essential (primary) hypertension